=== PATIENT | female | born 1945 | race Caucasian/White ===

== ENCOUNTER 2018-01-10 18:27 | Emergency (ER) | payer MEDICARE, SELFPAY ==
[2018-01-10 18:32] VITALS: BP 156/80; PULSE 104; RESP 16; TEMP 37.2; O2SAT 96
--- NOTE | 2018-01-10 19:15 | ED.GENADUL_ITS ---
Discharge Plan Disposition Patient Disposition: HOME Condition: Fair Discharge Details Chief Complaint: Cellulitis Clinical Impression: Abscess or cellulitis of chest wall Primary Care Provider: Melinda Ramírez ED Provider: Snehal Stallworth Home Meds and New Rx's Prescriptions: New clindamycin HCl 150 mg capsule 150 mg PO TID Qty: 60 RF: 0 Continue acetaminophen [Tylenol] 325 MG tablet 1,300 mg PO DAILY RF: 0 fluoxetine [Prozac] 10 MG capsule 10 mg PO DAILY RF: 0 acetaminophen [Acetaminophen Extra Strength] 500 MG tablet 500 mg PO HS RF: 0 naproxen 250 mg Tablet RF: 0 Discontinued amoxicillin-pot clavulanate [Augmentin] 875-125 mg Tablet 1 tab BID RF: 0 Discharge Instructions Instructions: Cellulitis (ED) Additional Instructions: Your abscess was drained while here in the wound was packed. Please keep current dressing until evaluated by primary care tomorrow. Please stop Augmentin and begin clindamycin as prescribed. If you develop fever/chills, increased pain, spreading of the redness or other new/worsening symptoms please seek care urgently once again. Keep appointment with primary tomorrow. Tylenol and/or ibuprofen as needed for discomfort. Encourage hydration Referrals: Melinda Ramírez [Primary Care Provider] - Medical Decision Making MDM Narrative Medical decision making narrative: Patient presents today with chief complaint of erythema and pain under the right breast. She reports that she has been feeling flushed but no known fever. She is currently afebrile. She appears nontoxic. Patient has been being treated with Augmentin for the past 4 days for skin infection. She does appear quite anxious on exam and reports that she has a lot of anxiety around her current condition. On exam, patient is noted to have cellulitis around a fluctuant open area, please see physical exam. I am unable to express any fluid at this time, the open area seems to largely have closed up. I did order an ultrasound probe over this area. Multiple loculations filled with fluid are noted under this. Overall, appears quite small and does not seem to dive deep into the breast tissue Consulted with general surgery. Spoke with Dr. Peña. We discussed the findings of the ultrasound as well as physical exam patient's history. She advised on how we could do this in the emergency room and felt that this was within the scope of practice for emergency room provider. She advised that if the abscess continues to be problematic for patient she should follow-up with general surgeon. Discussed this plan with the patient. We will apply LET and then anesthetize with local anesthetic. Please see procedure note for further information on incision and drainage of the patient's right breast abscess. Patient tolerated this well. Loculations were broken up with hemostat. Wound was packed with iodoform gauze. Patient I discussed care of her abscess. She will keep current dressing until evaluated by primary care. Patient has scheduled appointment with primary care tomorrow. Patient will stop Augmentin and begin clindamycin. Feel that she needs MRSA coverage. The surrounding cellulitis was demarcated with marker. High encourage hydration. Advised Tylenol and/or ibuprofen as needed for discomfort. She is given strict return precautions. All the questions and concerns were addressed and she is in agreement this plan HPI - General Adult General Mode of arrival: ambulatory . Date/Time Provider Initiated Documentation: 01/10/18 18:57 . Limitations to Documentation: no limitations . Information obtained by: patient . HPI Narrative: Patient is a 72-year-old female presenting today with chief complaint of infection to the right breast. Patient reports that she was seen by her primary care 4 days ago which time she was begun on Augmentin. Reports that she was diagnosed with a carbuncle. States that at this time she saw her primary it appeared coming to ahead. We are hoping that with some warm compresses it would have been naturally. She does report that she has had some drainage. Has been applying warm compresses as advised by her primary care. Has been taking her Augmentin as prescribed. Despite this, she reports that the pain and erythema has been spreading. States that she has been feeling feverish but has not actually measured a fever. She does report she takes naproxen and acetaminophen frequently for osteoarthritic pain. Denies GI upset. Also reports that she has had multiple other small areas of inflammation and possible abscesses recently all of which she has been able to promptly drained at home and have not needed evaluation. Patient was treated with ciprofloxacin recently. She is allergic to Bactrim. Related Data Home Medications Medication Instructions Recorded Confirmed acetaminophen [Tylenol] 1,300 mg PO DAILY NS 09/10/12 01/10/18 fluoxetine [Prozac] 10 mg PO DAILY NS 09/10/12 01/10/18 acetaminophen [Acetaminophen Extra 500 mg PO HS 01/22/15 01/10/18 Strength] naproxen 01/10/18 Previous Rx's Medication Instructions Recorded clindamycin HCl 150 mg PO TID #60 cap 01/10/18 Allergies Allergy/AdvReac Type Severity Reaction Status Date / Time celery Allergy Severe Anaphylaxsi Unverified 09/08/16 09:00 s sulfamethoxazole AdvReac Intermediate Unverified 09/08/16 09:00 [From Bactrim] trimethoprim [From Bactrim] AdvReac Intermediate Unverified 09/08/16 09:00 ciprofloxacin [From Cipro] AdvReac Other (See Unverified 01/10/18 18:37 Comment) General Stated Complaint: Cellulitis KETTY: 3 Review of Systems Constitutional Reports as per HPI Cardiovascular Denies chest pain, Denies chest pain with activity, Denies dyspnea and Denies dyspnea on exertion Respiratory Denies cough, Denies dyspnea, Denies dyspnea on exertion and Denies wheezing Gastrointestinal Reports as per HPI, Denies abdominal pain, Denies change in bowel habits, Reports nausea (associates with anxiety, none when at rest and calm) and Denies vomiting Integumentary/Breasts Reports as per HPI Psychiatric Reports anxiety Allergic/Immunologic Denies wheezing PFSH Medical History Depression Hypertension Social History Smoking/Tobacco Use Status: Former Tobacco Use Exam Const General: cooperative, healthy appearing, comfortable, no acute distress and well developed Nutritional Appearance: overweight Orientation: alert and awake Eyes General: appearance normal, both eyes and all related structures Resp Effort & Inspection: normal respiratory effort, able to speak in complete sentences and no respiratory distress Auscultation: clear to auscultation bilaterally Cardio Rate: regular rate Rhythm: regular rhythm Heart Sounds: S1 normal and S2 normal GI Inspection: normal to inspection and no abdominal wall ecchymosis Palpation: soft, no hepatosplenomegaly, not firm, no guarding, not rigid and nontender Skin General skin exam: fluctuance (patient has area of fluctuance under the left breast. Open area, not actively draining, 3mm in diameter. Surrounding tissue is erythematous 10cm x 6cm) and no induration Neuro General: alert and awake Cognition: normal cognition Speech: speech normal Gait: normal gait Psych Appearance: grossly normal and well kempt Mental Status: mental status grossly normal Speech and Movement: speech and movement normal Mood: congruent mood Affect: normal affect Course Vital Signs Temperature 37.2 C 01/10/18 18:32 Pulse 104 H 01/10/18 18:32 Respiratory Rate 16 01/10/18 18:32 Blood Pressure 156/80 H 01/10/18 18:32 Pulse Oximetry 96 01/10/18 18:32 Temperature 37.2 C 01/10/18 18:32 Pulse 104 H 01/10/18 18:32 Respiratory Rate 16 01/10/18 18:32 Blood Pressure 156/80 H 01/10/18 18:32 Pulse Oximetry 96 01/10/18 18:32 Procedures Abscess I/D Site: Other (right breast) Side (if applicable): Right Local Anesthetic: Lidocaine 1% and With Epi Amount of anesthesia used (mL): 5 Technique: Incised with #11 Blade Amount of fluid expressed (mL): 4 Irrigation: Yes Packing used?: Iodoform
[2018-01-10] MEDS: Clindamycin 150 MG CAP 450 MG PO ×2 (21:19→21:20)
[2018-01-10 21:25] VITALS: BP 152/60; PULSE 99; RESP 16; O2SAT 96
== END 2018-01-10 21:30 | disposition home or self-care (01) ==
PROVIDERS: Emergency Provider Physician Assistant; PCP Family Medicine
DX: L02.213 Cutaneous abscess of chest wall (principal); L03.313 Cellulitis of chest wall; I10 Essential (primary) hypertension
CPT/HCPCS: 10060; 99284

== ENCOUNTER 2018-02-18 09:07 | Outpatient (REF) | payer MEDICARE, SELFPAY ==
[2018-02-18 14:37] LABS: C-Reactive Protein 0.23 mg/dL (0.0-0.3)
[2018-02-18 15:19] LABS: ESR 21 MM/HR (0-30)
[2018-02-19 10:35] LABS: Cyclic Citrullinated Peptide <2.5 U/mL (<5.0); Rheumatoid Factor <8 IU/mL (<12.5)
[2018-02-19 14:10] LABS: ANA Interpretation Negative (NEGAT)
== END 2018-02-18 09:27 ==
LOC: NCHCN 09:07
PROVIDERS: PCP Family Medicine; Visit Provider Nurse Practitioner Family
DX: I10 Essential (primary) hypertension (principal); E78.5 Hyperlipidemia, unspecified; M17.0 Bilateral primary osteoarthritis of knee; L02.91 Cutaneous abscess, unspecified; F41.9 Anxiety disorder, unspecified; I51.9 Heart disease, unspecified; E66.9 Obesity, unspecified
CPT/HCPCS: 85652; 86200; 86038; 86140; 86431

== ENCOUNTER 2018-03-15 00:19 | Outpatient (CLI) | payer MEDICARE, SELFPAY ==
--- NOTE | 2018-03-15 11:46 | DI.MAMMO_ITS ---
SYMPTOMS/DIAGNOSIS: BREAST CA SCREENING, Z12.39, PREVENTATIVE CARE, Z00.00 MAMMOGRAMS: Mammograms were interpreted according to the usual protocol including computer analysis with CAD system, tomosynthesis and C view imaging. Comparison is with the prior examinations. No suspicious masses or microcalcifications are seen in the left breast. There appears to have developed a new partially obscured well-circumscribed nodule in the upper outer quadrant of the right breast. Spot compression views and a right breast ultrasound are requested for further evaluation. IMPRESSION: Additional views of the right breast as described above. Category 0 , breast density B. MQSA ASSESSMENT OF FINDINGS: Incomplete: Needs additional imaging evaluation. Category 0. Patient will receive a letter notifying them of these results. BI-RADS category B. There are scattered areas of fibroglandular density.
== END 2018-03-15 00:39 ==
PROVIDERS: PCP Family Medicine; Visit Provider Nurse Practitioner
DX: Z12.31 Encounter for screening mammogram for malignant neoplasm of breast (principal); R92.8 Other abnormal and inconclusive findings on diagnostic imaging of breast
CPT/HCPCS: 77063; 77067

== ENCOUNTER 2018-03-19 01:00 | Outpatient (CLI) | payer MEDICARE, SELFPAY ==
--- NOTE | 2018-03-19 13:06 | DI.COMBO_ITS ---
SYMPTOMS/DIAGNOSIS: F/U MAMMO, RT BREAST NODULE ADDITIONAL VIEWS OF THE RIGHT BREAST AND RIGHT BREAST ULTRASOUND: Additional images are interpreted according to the usual protocol including tomosynthesis and 2D imaging. Additional views of the right breast again show a partially obscured nodule in the upper outer quadrant of the right breast. No associated microcalcifications are present. A right breast ultrasound was performed. At the 11:00 o'clock position of the right breast there is a well circumscribed cyst measuring 0.5 cm. It would appear to correspond to the mammographic abnormality. No internal blood flow or solid component is seen. No solid masses are seen in the upper outer quadrant of the right breast. IMPRESSION: No evidence for malignancy. Yearly mammography is recommended. Category 2. Breast density B. The findings were discussed with the patient on the date of the examination. MQSA ASSESSMENT OF FINDINGS: Negative with benign findings. Category 2. Patient will receive a letter notifying them of these results. BI-RADS category B. There are scattered areas of fibroglandular density.
== END 2018-03-19 01:20 ==
PROVIDERS: PCP Family Medicine; Visit Provider Nurse Practitioner
DX: Z12.31 Encounter for screening mammogram for malignant neoplasm of breast (principal); R92.8 Other abnormal and inconclusive findings on diagnostic imaging of breast; N60.01 Solitary cyst of right breast
CPT/HCPCS: 76642; 77063; 77067

== ENCOUNTER 2018-08-23 11:04 | Outpatient (REF) | payer MEDICARE, OTHER, SELFPAY ==
[2018-08-23 21:15] LABS: Anion Gap 10.4 mmol/L (3-11); BUN 19 mg/dL (7-18); CO2 25.6 mmol/L (21.0-32.0); CREATININE 0.77 mg/dL (0.55-1.02); Chloride 105 mmol/L (98-107); Cholesterol 212 mg/dL (50-200); Glucose 103 mg/dL (70-100); HDL Cholesterol 61 mg/dL (40-60); LDL CHOLESTEROL 130 mg/dL (<100); Potassium 4.2 mmol/L (3.5-5.1); Sodium 141 mmol/L (136-145); Triglyceride 104 mg/dL (30-150)
== END 2018-08-23 11:24 ==
LOC: NCHCN 11:04
PROVIDERS: PCP Family Medicine; Visit Provider Nurse Practitioner Family
DX: E78.5 Hyperlipidemia, unspecified (principal); I10 Essential (primary) hypertension; I51.9 Heart disease, unspecified; E66.9 Obesity, unspecified; F41.9 Anxiety disorder, unspecified
CPT/HCPCS: 80048; 80061; 83721

== ENCOUNTER 2018-10-13 00:44 | Outpatient (CLI) | payer MEDICARE, OTHER, SELFPAY ==
--- NOTE | 2018-10-13 07:30 | MERGE_ITS ---
*[facility]* *[facility]* [address] [place] [address] Date of study: 10/13/2018 Transthoracic Echocardiography M-mode, complete 2D, complete spectral Doppler, and color Doppler *STUDY CONCLUSIONS* Summary: 1. Left ventricle: The cavity size was normal. Wall thickness was normal. Systolic function was normal. The estimated ejection fraction was 60-65%. Wall motion was normal; there were no regional wall motion abnormalities. Diastolic parameters were normal for age. 2. Right ventricle: The cavity size was normal. Wall thickness was normal. Systolic function was normal. 3. Pulmonary arteries: Pulmonary systolic pressure was increased, in the range of 40mm Hg to 45mm Hg. *PATIENT PRESENTATION* Height: 165.1cm ((65in) ) S/D Pressure: 129 / 70 Weight: 90.3kg ((198.6lb) ) BSA: 2.07m^2 Test start time: 07:35 AM. Test stop time: 08:35 AM. PERFORMING Unknown CONSULTING Melinda Ramírez ORDERING Sofia Berg Aprn REFERRING Sofia Berg Aprn PERFORMING [facility] SUPERVISOR [employer] RT Kiersten Lynch)BROOKS)CELESTE *PROCEDURE DATA* Procedure information: The patient was identified by two identifiers. This study was interpreted by [facility]. Pertinent images and digital data are archived for permanent storage and are available for subsequent review. Comparison was made to the study of 10/05/2017. Study status: Routine. Transthoracic echocardiography. M-mode, complete 2D, complete spectral Doppler, and color Doppler. A Transthoracic Echocardiogram was performed. Scanning was performed from the parasternal, apical, subcostal, and suprasternal notch acoustic windows. Images were obtained using an [id number] cardiac ultrasound machine. Image quality was adequate. Study completion: The patient tolerated the procedure well. There were no complications. History: PMH: Near syncope R55. Diastolic dysfunction, mitral regurgitation i34.0. *CARDIAC ANATOMY* Left ventricle: The cavity size was normal. Wall thickness was normal. Systolic function was normal. The estimated ejection fraction was 60-65%. Wall motion was normal; there were no regional wall motion abnormalities. Diastolic parameters were normal for age. Aortic valve: Trileaflet; normal thickness leaflets. Mobility was not restricted. Doppler: Transvalvular velocity was within the normal range. There was no stenosis. There was no significant regurgitation. VTI ratio of LVOT to aortic valve: 0.79. Valve area (VTI): 2.3cm^2. Indexed valve area (VTI): 1.1cm^2/m^2. Peak velocity ratio of LVOT to aortic valve: 0.83. Valve area (Vmax): 2.4cm^2. Indexed valve area (Vmax): 1.2cm^2/m^2. Mean velocity ratio of LVOT to aortic valve: 0.71. Valve area (Vmean): 2.1cm^2. Indexed valve area (Vmean): 1cm^2/m^2. Mean gradient (S): 5mm Hg. Peak gradient (S): 7.9mm Hg. Aorta: Aortic root: The aortic root was normal in size. Ascending aorta: The ascending aorta was normal in size. Mitral valve: Mildly calcified annulus. Mobility was not restricted. Doppler: Transvalvular velocity was within the normal range. There was no evidence for stenosis. There was trivial regurgitation. Valve area by pressure half-time: 4.8cm^2. Indexed valve area by pressure half-time: 2.3cm^2/m^2. Left atrium: The atrium was normal in size. Right ventricle: The cavity size was normal. Wall thickness was normal. Systolic function was normal. Pulmonic valve: Structurally normal valve. Doppler: Transvalvular velocity was within the normal range. There was no evidence for stenosis. There was no significant regurgitation. Peak gradient (S): 3.9mm Hg. Tricuspid valve: Structurally normal valve. Doppler: Transvalvular velocity was within the normal range. There was no evidence for stenosis. There was mild regurgitation. Pulmonary artery: Pulmonary systolic pressure was increased, in the range of 40mm Hg to 45mm Hg. Right atrium: The atrium was normal in size. Pericardium: There was no pericardial effusion. Systemic veins: Inferior vena cava: Well visualized. The vessel was patent and normal in size. The respirophasic diameter changes were in the normal range (greater than or equal to 50%). Baseline ECG: Normal sinus rhythm. Measurements Left ventricle Value 10/05/2017 Reference LV ID, ED, PLAX 5.0 cm 4.3 3.5 - 6.0 LV ID, ES, PLAX 3.1 cm 3.3 2.1 - 4.0 LV PW thickness, ED, PLAX 1.0 cm 1.1 LV end-diastolic volume, 93 ml 67 1-p A2C LV ejection fraction, 1-p 65 % 64 A2C LV end-diastolic volume, 100 ml 63 1-p A4C LV ejection fraction, 1-p 61 % 47 A4C LV e', lateral 0.091 m/sec 0.088 LV E/e', lateral 7 8 LV e', medial 0.078 m/sec 0.073 LV E/e', medial 8 9 LV e', average 0.085 m/sec 0.08 LV E/e', average 7 9 Ventricular septum Value 10/05/2017 Reference IVS thickness, ED, PLAX 1.1 cm 1.1 LVOT Value 10/05/2017 Reference LVOT ID, A-P 1.9 cm 1.9 LVOT area 2.9 cm^2 2.8 LVOT peak velocity, S 1.17 m/sec 1.08 LVOT mean velocity, S 0.77 m/sec 0.65 LVOT VTI, S 26.8 cm 26.5 LVOT peak gradient, S 5.4 mm Hg 4.7 LVOT mean gradient, S 2.8 mm Hg 2.1 Stroke volume (SV), LVOT 78 ml 75 DP Stroke index (SV/bsa), 38 ml/m^2 36 LVOT DP Aortic valve Value 10/05/2017 Reference Aortic valve peak 1.4 m/sec 1.5 velocity, S Aortic valve mean 1.08 m/sec 1.06 velocity, S Aortic valve VTI, S 34.0 cm 38.2 Aortic mean gradient, S 5 mm Hg 5 Aortic peak gradient, S 7.9 mm Hg 9.4 VTI ratio, LVOT/AV 0.79 0.69 Aortic valve area, VTI 2.3 cm^2 2 Velocity ratio, peak, 0.83 0.71 LVOT/AV Aortic valve area, peak 2.4 cm^2 2 velocity Velocity ratio, mean, 0.71 0.61 LVOT/AV Aortic valve area, mean 2.1 cm^2 1.7 velocity Aortic valve area/bsa, 1 cm^2/m^2 0.8 mean velocity Aorta Value 10/05/2017 Reference Aortic root ID, ED 2.6 cm 2.6 Ascending aorta ID, A-P, S 3.1 cm 3.1 Left atrium Value 10/05/2017 Reference LA ID, A-P, ES 3.6 cm 3.2 LA ID/bsa, A-P 1.7 cm/m^2 1.5 <=2.2 LA area, ES, A4C 22.1 cm^2 20.6 8.8 - 23.4 LA area, ES, A2C 20 cm^2 21 LA volume/bsa, ES, 1-p A4C 39 ml/m^2 33 LA volume, ES, 2-p 66 ml 58 LA volume/bsa, ES, 2-p 32 ml/m^2 28 LA/aortic root ratio 1.36 1.23 Mitral valve Value 10/05/2017 Reference Mitral E-wave peak 0.6 m/sec 0.68 velocity Mitral A-wave peak 0.72 m/sec 0.66 velocity Mitral deceleration time 160 ms 149 150 - 230 Mitral pressure half-time 46 ms 43 Mitral E/A ratio, peak 0.84 1.04 Mitral valve area, PHT, DP 4.8 cm^2 5.1 Pulmonary veins Value 10/05/2017 Reference Pulmonary vein peak 0.78 m/sec 0.79 velocity, S Pulmonary vein peak 0.45 m/sec 0.45 velocity, D Pulmonary vein velocity 1.75 1.77 ratio, peak, S/D Pulmonary vein A-wave 0.3 m/sec 0.27 reversal peak velocity Pulmonary vein A-wave 180 ms 215 reversal duration Tricuspid valve Value 10/05/2017 Reference Tricuspid regurg peak 3 m/sec 3.1 velocity Tricuspid peak RV-RA 36.5 mm Hg 39.2 gradient Right atrium Value 10/05/2017 Reference RA area, ES, A4C 19.1 cm^2 20.3 8.3 - 19.5 Pulmonic valve Value 10/05/2017 Reference Pulmonic peak gradient, S 3.9 mm Hg 4.4 Legend: (L) and (H) ghada values outside specified reference range. I have personally reviewed the images and have reviewed and edited the reported findings. Electronically signed by Jose Lewis 10/13/2018 08:58
== END 2018-10-13 01:04 ==
PROVIDERS: PCP Family Medicine; Visit Provider Nurse Practitioner Family
DX: R55 Syncope and collapse (principal); I34.0 Nonrheumatic mitral (valve) insufficiency; I51.89 Other ill-defined heart diseases
CPT/HCPCS: 93306

== ENCOUNTER → 2019-01-19 11:44 | Outpatient (BNVA) | payer MEDICARE, OTHER, SELFPAY | PROVIDERS: PCP Family Medicine; Referring Provider Nurse Practitioner Family; Visit Provider Student in an Organized Health Care Education/Training Program | DX: I51.89 Other ill-defined heart diseases (principal); I27.20 Pulmonary hypertension, unspecified; E78.2 Mixed hyperlipidemia; I10 Essential (primary) hypertension; R55 Syncope and collapse | CPT/HCPCS: 99204; 99215 ==

== ENCOUNTER 2019-02-04 12:45 | Outpatient (REF) | payer MEDICARE, OTHER, SELFPAY ==
[2019-02-04 20:52] LABS: Anion Gap 9.6 mmol/L (3-11); BUN 25 mg/dL (7-18); CO2 25.4 mmol/L (21.0-32.0); CREATININE 0.94 mg/dL (0.55-1.02); Calcium 8.7 mg/dL (8.5-10.1); Chloride 108 mmol/L (98-107); Estimated GFR 58.37 (mL/min/1.73m2); Glucose 112 mg/dL (70-100); Potassium 4.4 mmol/L (3.5-5.1); Sodium 143 mmol/L (136-145)
== END 2019-02-04 13:05 ==
LOC: NCHCN 12:45
PROVIDERS: PCP Family Medicine; Visit Provider Nurse Practitioner Family
DX: I10 Essential (primary) hypertension (principal)
CPT/HCPCS: 80048

== ENCOUNTER 2019-04-06 01:02 | Outpatient (CLI) | payer MEDICARE, OTHER, SELFPAY ==
--- NOTE | 2019-04-06 12:30 | DI.MAMMO_ITS ---
EXAM: MG MAMMO SCREENING CLINICAL HISTORY: SCREENING Z12.39 TECHNIQUE: Mammograms were interpreted according to the usual protocol including computer analysis w [employer] CAD system, tomosynthesis and C-view imaging. COMPARISON: No exams were available for comparison FINDINGS: The breasts are composed of scattered areas of fibroglandular density, breast density category B. No suspicious masses or suspicious microcalcifications or changes are seen. IMPRESSION: BI-RADS category 1, negative mammogram. Yearly screening mammography is recommended. BI-RADS Cat 1 - Negative Breast Density - Category B - Scattered areas of fibroglandular density
== END 2019-04-06 01:22 ==
PROVIDERS: PCP Family Medicine; Visit Provider Nurse Practitioner Family
DX: Z12.31 Encounter for screening mammogram for malignant neoplasm of breast (principal)
CPT/HCPCS: 77063; 77067

== ENCOUNTER 2020-05-15 18:44 | Outpatient (REF) | payer MEDICARE, OTHER, SELFPAY ==
[2020-05-15 22:00] LABS: Anion Gap 9.5 mmol/L (3-11); BUN 28 mg/dL (7-18); CO2 26.5 mmol/L (21.0-32.0); Calculated LDL 129 mg/dL (<100); Chloride 105 mmol/L (98-107); Cholesterol 215 mg/dL (<200); Glucose 96 mg/dL (74-106); HDL Cholesterol 67 mg/dL (40-60); Potassium 4.7 mmol/L (3.5-5.1); Sodium 141 mmol/L (136-145); TSH (W/Ref FT4) 1.16 uIU/mL (0.36-3.74); Triglyceride 97 mg/dL (<150)
== END 2020-05-15 19:04 ==
LOC: NCHCN 18:44
PROVIDERS: PCP Family Medicine
DX: I10 Essential (primary) hypertension (principal); E78.5 Hyperlipidemia, unspecified; F41.9 Anxiety disorder, unspecified
CPT/HCPCS: 80048; 80061; 84443

== ENCOUNTER 2020-05-16 02:19 | Outpatient (CLI) | payer MEDICARE, OTHER, SELFPAY ==
--- NOTE | 2020-05-16 12:51 | DI.MAMMO_ITS ---
EXAM: MAMMO SCREENING CLINICAL HISTORY: SCREENING, Z12.39. TECHNIQUE: Bilateral full field digital CC and MLO mammographic images were obtained with 3D tomosyn thesis and utilizing computer aided detection (CAD). COMPARISON: Prior mammograms dating back to 2010, the most recent being April 2019. FINDINGS: Ports medial aspect of the right breast there is a the lobulated noncalcified nodule measuring 7 x 5 millimeters located 6 centimetres in from nipple, more prominent than previous. Spot compression vie w recommended. No other significant nodular densities identified. Benign-appearing microcalcificati ons are noted in both breasts. No new architectural distortion or skin thickening-traction IMPRESSION: No radiographic evidence of malignancy in left breast. Right breast nodule. Spot compression cc and whole breast straight lateral cyst 3D views recommended . Also possible ultrasound BI-RADS Category 0 - Assessment Incomplete: Need additional imaging evaluation Breast Density - Category B - Scattered areas of fibroglandular density Breast density Category C or D implies that the patient has dense breast tissue. Dense breast tissue can make it harder to find cancer on a mammogram. Dense breast tissue is also associated with an incr eased risk of breast cancer. This information about the result of the mammogram report was provided to the patient to raise their awareness. Use this report when you speak with the patient about their risks for breast cancer, which includes their family history. At that time, you may recommend additional screening tests (Ultrasoun d or MRI) as these tests may add significant information. A negative radiographic report should not delay biopsy if a dominant or clinically suspicious mass is present. Up to ten percent of cancers are not identified on mammography. A negative report may reinforce clinical impression. Adenosis and dense breasts may obscure an underlying neoplasm. False positive reports average 6 to 10%. Patient will receive a letter notifying them of these results.
== END 2020-05-16 02:39 ==
PROVIDERS: PCP Family Medicine
DX: Z12.31 Encounter for screening mammogram for malignant neoplasm of breast (principal)
CPT/HCPCS: 77063; 77067

== ENCOUNTER 2020-05-24 03:11 | Outpatient (CLI) | payer MEDICARE, OTHER, SELFPAY ==
--- NOTE | 2020-05-24 | DI.US_ITS ---
EXAM: MG MAMMO SCREEN CALL BACK UNI and U/S breast RT limited CLINICAL HISTORY: F/U MAMMO, RT BREAST NODULE. TECHNIQUE: Craniocaudal and mediolateral oblique Full Field Digital Mammography views of the right b reast with Computer Aided Diagnosis followed by Tomosynthesis and right breast ultrasound. COMPARISON: Priors available for comparison. FINDINGS: Mammography/Tomosynthesis: Masses/Architectural Distortion: There is a well-circumscribed nodular density again seen in the lowe r inner quadrant of the right breast. Microcalcifictions: No suspicious pleomorphic-type are seen. Skin Thickening/Nipple Retraction: None. Right breast US: Echotexture: Normal appearance of the glandular tissue. Shadowing: No suspicious foci. Cyst: There is a 0.5 cm round hypoechoic nodule at the 6 o'clock position of the right breast 3 cm fr om the nipple. No posterior acoustic enhancement or shadowing is seen. No internal blood flow is pr esent. There is an ovoid hypoechoic well-circumscribed nodule at the 2 o'clock position of the right breast 6 cm from the nipple. There is no internal blood flow, posterior acoustic shadowing or enhan cement. These both appear benign and may represent cysts. Solid lesions: None seen. Ductal dilation: None. IMPRESSION: 1. No definite evidence of malignancy is noted. 2. A six-month follow-up right mammogram and ultrasound are recommended for re-evaluation. 3. The findings were discussed with the patient on the date of the examination. BI-RADS Category 3 - 6 month - Probably Benign Finding: Recommend follow-up mammography in 6 months Breast Density - Category B - Scattered areas of fibroglandular density Breast density Category C or D implies that the patient has dense breast tissue. Dense breast tissue can make it harder to find cancer on a mammogram. Dense breast tissue is also associated with an incr eased risk of breast cancer. This information about the result of the mammogram report was provided to the patient to raise their awareness. Use this report when you speak with the patient about their risks for breast cancer, which includes their family history. At that time, you may recommend additional screening tests (Ultrasoun d or MRI) as these tests may add significant information. A negative radiographic report should not delay biopsy if a dominant or clinically suspicious mass is present. Up to ten percent of cancers are not identified on mammography. A negative report may reinforce clinical impression. Adenosis and dense breasts may obscure an underlying neoplasm. False positive reports average 6 to 10%. Patient will receive a letter notifying them of these results.
== END 2020-05-24 03:31 ==
PROVIDERS: PCP Family Medicine
DX: R92.8 Other abnormal and inconclusive findings on diagnostic imaging of breast (principal); N63.12 Unspecified lump in the right breast, upper inner quadrant; N63.15 Unspecified lump in the right breast, overlapping quadrants
CPT/HCPCS: 76642; 77063; 77067

== ENCOUNTER 2020-11-22 01:28 | Outpatient (CLI) | payer MEDICARE, OTHER, SELFPAY ==
--- NOTE | 2020-11-22 | DI.US_ITS ---
Exam(s) US BREAST RT COMPLETE EXAM: US BREAST RT COMPLETE CLINICAL HISTORY: 6 MONTH F/U, ABNL MAMMO. TECHNIQUE: Complete ultrasound of the right breast was performed including all 4 quadrants, the retr oareolar region, and the ipsilateral axilla. COMPARISON: Prior mammograms were reviewed. Today's diagnostic mammogram was reviewed. Prior breast ultrasound performed May 2020 was reviewed FINDINGS: At the 2 o'clock position there is a small conglomeration of microcysts measuring 3 millimeters. At the 4 o'clock position there is a new finding which measures 7 x 4 millimeters and has appearance of a benign conglomeration of microcysts, wider than taller and with slight increased through transmi ssion. This probably corresponds to the finding on the mammogram. At the 6 o'clock position there is an unchanged microcyst which measures 4 millimeters. No new findings in the immediate retroareolar region. Benign-appearing right axillary lymph nodes noted. IMPRESSION: Benign-appearing ultrasound findings as described individually above. The new finding at the 4 o'clock position has appearance of benign conglomeration microcysts. Appropriate follow-up is keep this patient yearly mammogram schedule implying the next bilateral mamm ogram would be in May 2021. I recommend repeat ultrasound also be performed at that time.. BI-RADS Category 3 - 6 month - Probably Benign Finding: Recommend follow-up mammography in 6 months Breast Density - Category B - Scattered areas of fibroglandular density Breast density Category C or D implies that the patient has dense breast tissue. Dense breast tissue can make it harder to find cancer on a mammogram. Dense breast tissue is also associated with an incr eased risk of breast cancer. This information about the result of the mammogram report was provided to the patient to raise their awareness. Use this report when you speak with the patient about their risks for breast cancer, which includes their family history. At that time, you may recommend additional screening tests (Ultrasoun d or MRI) as these tests may add significant information. A negative radiographic report should not delay biopsy if a dominant or clinically suspicious mass is present. Up to ten percent of cancers are not identified on mammography. A negative report may reinforce clinical impression. Adenosis and dense breasts may obscure an underlying neoplasm. False positive reports average 6 to 10%. Patient will receive a letter notifying them of these results.
--- NOTE | 2020-11-22 | DI.MAMMO_ITS ---
Exam(s) MAMMO DIAGNOSTIC UNI EXAM: MAMMO DIAGNOSTIC UNI CLINICAL HISTORY: F/U ABNL MAMMO, 6 MO F/U,R92.8. TECHNIQUE: Both CC and MLO views of right breast were performed obtained with 3D Tomosynthesistechni que and utilizing computer aided detection (CAD). COMPARISON: Prior mammograms reviewed, most recent being screening mammogram 05/16/2020. FINDINGS: Subtle nodular density at 6 o'clock position is noted this appears slightly more prominent on the reina or study. Appears to correspond to a conglomeration microcysts as seen on today's ultrasound which w as performed following this mammogram (see separate ultrasound report). Other benign-appearing densi ties again noted. No malignant-appearing microcalcification groups. No new architectural distortion or skin thickening-retraction IMPRESSION: Findings as above. Ultrasound performed following today's mammogram reveals benign findings includin g a new conglomeration microcysts measuring 8 x 5 millimeters which probably corresponds to the findi ng on the mammogram. Appropriate follow-up is to keep this patient yearly mammogram schedule, this implying that her next screening mammogram would be in May 2021. I also recommend repeat ultrasound examination at that time. The patient was informed of the findings and follow-up recommendations by myself prior to leaving the department today. BI-RADS Category 3 - 6 month - Probably Benign Finding: Recommend follow-up mammography in 6 months Breast Density - Category B - Scattered areas of fibroglandular density Breast density Category C or D implies that the patient has dense breast tissue. Dense breast tissue can make it harder to find cancer on a mammogram. Dense breast tissue is also associated with an incr eased risk of breast cancer. This information about the result of the mammogram report was provided to the patient to raise their awareness. Use this report when you speak with the patient about their risks for breast cancer, which includes their family history. At that time, you may recommend additional screening tests (Ultrasoun d or MRI) as these tests may add significant information. A negative radiographic report should not delay biopsy if a dominant or clinically suspicious mass is present. Up to ten percent of cancers are not identified on mammography. A negative report may reinforce clinical impression. Adenosis and dense breasts may obscure an underlying neoplasm. False positive reports average 6 to 10%. Patient will receive a letter notifying them of these results.
== END 2020-11-22 01:48 ==
PROVIDERS: PCP Family Medicine
DX: R92.8 Other abnormal and inconclusive findings on diagnostic imaging of breast (principal); N60.01 Solitary cyst of right breast
CPT/HCPCS: 76642; 77061; 77065; G0279

== ENCOUNTER 2021-01-11 11:41 | Outpatient (CLI) | payer MEDICARE, OTHER, SELFPAY ==
--- NOTE | 2021-01-11 10:15 | DI.RAD_ITS ---
Exam(s) XR LUMBAR SPINE AP, LAT EXAM: XR LUMBAR SPINE AP, LAT CLINICAL HISTORY: worsening LBP with signs of stenosis. TECHNIQUE: 2D digital imaging was performed. COMPARISON: CR LUMBAR SPINE AP, LAT from 06/23/2016 CR LUMBAR SPINE AP, LAT from 06/23/2016 FINDINGS: BONES: No fracture or destructive lesion. Endplate osteophytes are noted throughout. The osteophyte s have increased in prominence when compared with the previous exam. Facet degenerative changes are present, greatest at L4-5 and L5-S1. There are mild degenerative changes of the SI joints. DISKS: There is mild narrowing of the L4-5 disc space. ALIGNMENT: Lumbar spinal alignment is within normal limits. SOFT TISSUE: Normal. IMPRESSION: Mild L4-5 disc space narrowing. Increased prominence of endplate osteophytes. DATA REPOSITORY: RADIATION DOSE DELIVERED:
--- NOTE | 2021-01-11 10:15 | DI.RAD_ITS ---
Exam(s) XR KNEE RT 2V AP,LAT EXAM: XR KNEE RT 2V AP,LAT CLINICAL HISTORY: eval worsening R knee pain. TECHNIQUE: 2D digital imaging was performed. COMPARISON: CR XR KNEE LT 2V AP,LAT from 01/11/2021 FINDINGS: There is severe narrowing of the medial femoral tibial joint space. There is prominent periarticular spurring. There is compensatory widening of the lateral femoral tibial joint space and varus angula tion at the knee. There is prominent spurring at the lateral tibial plateau as well as patellofemora l joint. There is a small joint effusion. IMPRESSION: Severe degenerative changes, greatest of the medial femoral tibial joint space. DATA REPOSITORY: RADIATION DOSE DELIVERED:
--- NOTE | 2021-01-11 10:15 | DI.RAD_ITS ---
Exam(s) XR KNEE LT 2V AP,LAT EXAM: XR KNEE LT 2V AP,LAT CLINICAL HISTORY: eval L knee pain, h/o OA. TECHNIQUE: 2D digital imaging was performed. COMPARISON: CR RIGHT KNEE 3 VIEWS from 02/14/2014 FINDINGS: There is severe narrowing of the medial femoral tibial joint space causing varus angulation. There i s periarticular spurring and sclerosis. Spurring is also noted at the tibial spines and patellofemor al joint. There is spurring at the quadriceps insertion on the patella. IMPRESSION: Severe degenerative changes, greatest of the medial femoral tibial joint. DATA REPOSITORY: RADIATION DOSE DELIVERED:
== END 2021-01-11 11:42 | disposition home or self-care (01) ==
LOC: DIORS 11:41
PROVIDERS: PCP Family Medicine; Visit Provider Student in an Organized Health Care Education/Training Program
DX: M17.12 Unilateral primary osteoarthritis, left knee; M17.11 Unilateral primary osteoarthritis, right knee; M48.062 Spinal stenosis, lumbar region with neurogenic claudication
CPT/HCPCS: 99213; 72100; 73560

== ENCOUNTER 2021-02-05 01:53 | Outpatient (CLI) | payer MEDICARE, OTHER, SELFPAY ==
--- NOTE | 2021-02-05 11:50 | DI.MRI_ITS ---
Exam(s) MR LUMBAR SPINE WO EXAM: MR LUMBAR SPINE WO CLINICAL HISTORY: LUMBAR SPINAL STENOSIS,BACK PAIN,M48.061. TECHNIQUE: Multiplanar multisequence MRI of the Lumbar spine was performed. COMPARISON: MR MRI - LUMBAR SPINE WO CONTRAST from 06/26/2016 CR XR LUMBAR SPINE AP, LAT from 01/11/2021 FINDINGS: Bones: The last intervertebral disc space is designated the L5/S1 level for the numbering purpose of this examination. The vertebral body heights are well maintained. Alignment is satisfactory. The si gnal characteristics are unremarkable. Cord: The conus tip ends at the T12-L1 disc level. It is of normal size and signal intensity. T12-L1: No disc herniations or bulges are present. No central spinal canal or neural foraminal stenos is. L1-2: No disc herniations or bulges are present. No central spinal canal or neural foraminal stenosis . L2-3: There is a diffuse disc bulge. No significant central spinal canal stenosis results. There is no neural foraminal stenosis. L3-4: No disc herniations or bulges are present. No central spinal canal or neural foraminal stenosis . L4-5: There is a stable left paracentral disc herniation. Degenerative changes of the facets with li gamentum flavum hypertrophy is present. There is severe central spinal canal stenosis which is sligh tly progressed since the prior examination.No neural foraminal stenosis. L5-S1: No disc herniations or bulges are present. There are degenerative changes of the facets. No c entral spinal canal stenosis is seen.There is mild right neural foraminal narrowing. No significant left neural foraminal stenosis is present. Soft tissues: The visualized SI joints and sacrum are well maintained. The paraspinal soft tissues ar e unremarkable. IMPRESSION: 1. Multilevel degenerative changes in the lumbar spine as described. 2. Degenerative changes and herniation at L4-L5 causing severe central spinal canal stenosis. This i s slightly progressed since the prior examination. DATA REPOSITORY:
== END 2021-02-05 02:13 ==
PROVIDERS: PCP Family Medicine; Visit Provider Student in an Organized Health Care Education/Training Program
DX: M48.061 Spinal stenosis, lumbar region without neurogenic claudication (principal); M47.816 Spondylosis without myelopathy or radiculopathy, lumbar region; M51.26 Other intervertebral disc displacement, lumbar region
CPT/HCPCS: 72148

== ENCOUNTER → 2021-02-11 12:56 | Outpatient (BNVA) | payer MEDICARE, OTHER, SELFPAY | PROVIDERS: PCP Family Medicine; Referring Provider Family Medicine; Visit Provider Student in an Organized Health Care Education/Training Program | DX: M48.062 Spinal stenosis, lumbar region with neurogenic claudication (principal) | CPT/HCPCS: 99213 ==

== ENCOUNTER 2021-05-17 02:00 | Outpatient (CLI) | payer MEDICARE, OTHER, SELFPAY ==
--- NOTE | 2021-05-17 | DI.MAMMO_ITS ---
Exam(s) US BREAST RT COMPLETE MG MAMMO DIAGNOSTIC BI EXAM: MG MAMMO DIAGNOSTIC BI AND COMPLETE RIGHT BREAST ULTRASOUND CLINICAL HISTORY: DIAGNOSTIC, RT BREAST CYST,6 MONTH FOLLOW UP. TECHNIQUE: Both CC and MLO views of both breasts were performed. We also performed an additional sp ot compression view over a new nodular density in the right breast. Obtained with 3D tomosynthesis t [facility] and utilizing computer aided detection (CAD). Complete right breast ultrasound was performed, including all 4 quadrants as well as the retroareolar region. Right axilla was also scanned. COMPARISON: Prior mammograms dating back to 2012, the most recent being May and November 2020. Prio r ultrasound examination 11/22/2020 was FINDINGS: DIAGNOSTIC BILATERAL MAMMOGRAM: The previously described nodular density medially in the right breast is less evident on the present study (and indeed the ultrasound performed today does not reveal the previously present finding this location). However, more laterally in the right breast there is a nodular density seen on 3D cc imag ing located 7 cm in from the nipple and measuring approximately 7 by 6 millimeters. This is somewhat equivocal on additional spot compression view performed over this area today. Benign-appearing micr ocalcifications are noted in both breasts. In the opposite-left breast small benign-appearing nodular density noted lateral of center is unchang ed. Benign-appearing microcalcifications noted There is no new architectural distortion or skin thickening-traction either breast. COMPLETE RIGHT BREAST ULTRASOUND: The previously present conglomeration microcysts seen at the 4 o'clock position is no longer seen, th is commensurate with findings on today's mammogram. There is a new ultrasound finding at the 8 o'clock position which corresponds to the new finding on t miki's mammogram and has the appearance of a probable conglomeration of hemorrhagic microcysts. The largest component measures 4 x 3 millimeters. This is wider than taller and exhibits of bright back wall and mild increased through transmission. No decreased through transmission. There are no other focal ultrasound findings in right breast. Right axilla is negative for significa nt adenopathy. IMPRESSION: 1. No radiographic evidence of malignancy. On the mammogram the previously present nodule described on the prior mammograms has resolved and is also no longer visible on ultrasound for further evidence that it was benign. 2. There is a new finding in the right breast which appears to be a probable conglomeration of hemorr hagic microcysts at the 8 o'clock position, as described above. Appropriate follow-up is repeat right breast imaging in 6 months, to include repeat right breast mamm ogram and ultrasound. . The patient was informed of the findings and follow-up recommendations prior to leaving the [facility] t today. BI-RADS Category 3 - 6 month - Probably Benign Finding: Recommend follow-up mammography in 6 months Breast Density - Category B - Scattered areas of fibroglandular density Breast density Category C or D implies that the patient has dense breast tissue. Dense breast tissue can make it harder to find cancer on a mammogram. Dense breast tissue is also associated with an incr eased risk of breast cancer. This information about the result of the mammogram report was provided to the patient to raise their awareness. Use this report when you speak with the patient about their risks for breast cancer, which includes their family history. At that time, you may recommend additional screening tests (Ultrasoun d or MRI) as these tests may add significant information. A negative radiographic report should not delay biopsy if a dominant or clinically suspicious mass is present. Up to ten percent of cancers are not identified on mammography. A negative report may reinforce clinical impression. Adenosis and dense breasts may obscure an underlying neoplasm. False positive reports average 6 to 10%. Patient will receive a letter notifying them of these results.
== END 2021-05-17 02:20 ==
PROVIDERS: PCP Family Medicine; Visit Provider Family Medicine
DX: R92.8 Other abnormal and inconclusive findings on diagnostic imaging of breast (principal)
CPT/HCPCS: 76642; 77062; 77066; G0279

== ENCOUNTER 2021-08-21 12:29 | Outpatient (REF) | payer MEDICARE, OTHER, SELFPAY ==
[2021-08-21 16:36] LABS: HCT 43.1 % (36.0-46.0); HGB 13.3 g/dL (11.2-15.7); MCH 29.2 pg (27.0-33.0); MCHC 30.9 % (32.0-36.0); MCV 94.5 fL (80-95); MPV 11.5 fL (8.0-11.0); Platelet Count 294 10^3/uL (130-400); RBC 4.56 10^6/uL (3.93-5.22); RDW 13.6 % (11.7-14.6); RDW-SD 47.5 fL
[2021-08-21 16:55] LABS: ALT 23 U/L (14-59); AST 19 U/L (15-37); Albumin 4.1 g/dL (3.4-5.0); Alkaline Phosphatase 75 U/L (46-116); Anion Gap 10.5 mmol/L (3-11); BUN 19 mg/dL (7-18); Bilirubin, Total 0.3 mg/dL (0.2-1.0); CO2 25.5 mmol/L (21.0-32.0); CREATININE 0.8 mg/dL (0.55-1.02); Calcium 9.2 mg/dL (8.5-10.1); Chloride 106 mmol/L (98-107); Glucose 102 mg/dL (74-106); Potassium 4.5 mmol/L (3.5-5.1); Sodium 142 mmol/L (136-145); Total Protein 7.3 g/dL (6.4-8.2)
== END 2021-08-21 12:30 | disposition home or self-care (01) ==
LOC: NCHCN 12:29
PROVIDERS: PCP Family Medicine; Visit Provider Family Medicine
DX: I10 Essential (primary) hypertension (principal)
CPT/HCPCS: 80053; 85027

== ENCOUNTER 2021-11-12 11:22 | Emergency (ER) | payer MEDICARE, OTHER, SELFPAY ==
[2021-11-12 11:33] VITALS: BP 136/61; PULSE 94; RESP 18; TEMP 36.7; O2SAT 93
--- NOTE | 2021-11-12 13:04 | DI.MRI_ITS ---
Exam(s) MR LUMBAR SPINE WO/W EXAM: MR LUMBAR SPINE WO/W CLINICAL HISTORY: evaluate for epidural abscess or discitis, s/p epi. TECHNIQUE: Multiplanar multisequence MRI of the Lumbar Spine was performed. CONTRAST MATERIAL: IV Contrast: 19 mL of Dotarem contrast administered. COMPARISON: MR MR LUMBAR SPINE WO from 02/05/2021 CR XR CHEST 1V IN DI DEPT from 11/12/2021 FINDINGS: The examination is limited due to patient motion artifact. Bones: The last intervertebral disc space is designated the L5/S1 level for the numbering purpose of this examination. The vertebral body heights are well maintained. Alignment is satisfactory. Degener ative endplate signal changes are again seen. There has been no change in the degree of central spin al canal and neural foraminal stenosis since the examination from 02/05/2021. Cord: The conus tip ends at the T12 level. It is of normal size and signal intensity. Soft tissues: The visualized SI joints and sacrum are well maintained. The paraspinal soft tissues ar e unremarkable. There is no evidence of suspicious enhancement. No evidence to suggest diskitis or osteomyelitis is s een. No focal fluid collection is seen to suggest an abscess. IMPRESSION: 1. No evidence to suggest diskitis or osteomyelitis. No evidence of an epidural abscess. 2. Results of this exam have been verbally communicated with provider. DATA REPOSITORY:
--- NOTE | 2021-11-12 13:04 | DI.RAD_ITS ---
Exam(s) XR CHEST 1V IN DI DEPT EXAM: XR CHEST 1V IN DI DEPT CLINICAL HISTORY: fever TECHNIQUE: 2D digital imaging was performed of the chest. One image was obtained. An AP view was ob tained. COMPARISON: No exams were available for comparison FINDINGS: MEDIASTINUM: Normal. HEART: Normal. PULMONARY VASCULATURE: Normal. LUNGS: Clear. PLEURAL SPACE: No pleural effusion or pneumothorax. BONE:Within normal limits for the patient's age. OTHER FINDINGS:Normal. IMPRESSION: No acute pulmonary findings. DATA REPOSITORY: RADIATION DOSE DELIVERED:
[2021-11-12 13:20] VITALS: BP 127/64; PULSE 91; RESP 17; TEMP 37.4; O2SAT 92
[2021-11-12 13:35] VITALS: RESP 16
[2021-11-12 14:00] LABS: Abs Immature Grans 0.06 10^3/uL (0.0-0.06); Absolute Lymphocyte Count 0.78 10^3/uL (1.2-3.4); Absolute Monocyte Count 1.17 10^3/uL (0.1-0.8); Basophils % 0.1; HCT 40.5 % (36.0-46.0); HGB 13.1 g/dL (11.2-15.7); Immature Grans % 0.4; Lymphocytes % 5.3; MCH 29.9 pg (27.0-33.0); MCHC 32.3 % (32.0-36.0); MCV 93 fL (80-95); MPV 10.6 fL (8.0-11.0); Monocytes % 7.9; Neutrophils % 86.3; Platelet Count 226 10^3/uL (130-400); RBC 4.38 10^6/uL (3.93-5.22); RDW-SD 47.8 fL; WBC 14.75 10^3/uL (4.4-10.8)
[2021-11-12 14:01] LABS: Absolute Basophil Count 0.01 10^3/uL (0.0-0.2); Absolute Neutrophil Count 12.73 10^3/uL (1.2-6.7)
[2021-11-12 14:23] LABS: ALT 22 U/L (14-59); AST 15 U/L (15-37); Albumin 3.7 g/dL (3.4-5.0); Alkaline Phosphatase 54 U/L (46-116); Anion Gap 11.5 mmol/L (3-11); BUN 19 mg/dL (7-18); Bilirubin, Total 0.5 mg/dL (0.2-1.0); C-Reactive Protein 9.14 mg/dL (0.0-0.3); CO2 22.5 mmol/L (21.0-32.0); CREATININE 0.7 mg/dL (0.55-1.02); Calcium 8.8 mg/dL (8.5-10.1); Chloride 101 mmol/L (98-107); Glucose 115 mg/dL (74-106); Potassium 3.8 mmol/L (3.5-5.1); Sodium 135 mmol/L (136-145); Total Protein 7.7 g/dL (6.4-8.2)
[2021-11-12] MEDS: Normal Saline Flush 10 ML SYR IVP (14:26)
[2021-11-12] MEDS: Gadoterate meglumine 20 ML SYRINGE 19 ML IVP (14:27)
[2021-11-12 14:49] LABS: COVID-19 PCR Negative (Negative); Influenza A PCR Negative (Negative); Influenza B PCR Negative (Negative); RSV PCR Negative (Negative)
--- NOTE | 2021-11-12 15:55 | W.ED.GENAD ---
Discharge Plan Disposition Patient Disposition: HOME Condition: Stable Discharge Details Clinical Impression: Acute UTI, Fever, Back pain Primary Care Provider: Duy Lund ED Provider: Amandeep Post Home Meds and New Rx's Prescriptions: New cephalexin 500 mg tablet 500 mg PO TID 6 Days Qty: 18 0RF Continued metoprolol tartrate 25 mg tablet 25 mg PO BID aspirin 81 mg tablet,delayed release (DR/EC) 81 mg PO DAILY sertraline 25 mg tablet 25 mg PO DAILY acetaminophen [Tylenol] 325 MG tablet 1,300 mg PO DAILY Label Comments: 04/09/15 tabs are 650mg clw acetaminophen [Acetaminophen Extra Strength] 500 mg tablet 500 mg PO Q6H PRN naproxen 250 mg tablet 220 mg PO DAILY Discharge Instructions Instructions: Urinary Tract Infection in Women (ED), Back Pain (ED) Additional Instructions: tylenol as needed for fever and pain recheck with pcp tomorrow pending lyme titer return with new or worsening complaints Referrals: Duy Lund MD [Primary Care Provider] - 1 day Discharge Data Discharge Date/Time-TO BE ENTERED AT DEPARTURE: 11/12/21 18:39 Medical Decision Making <KINJAL Taveras - Last Filed: 11/13/21 10:18> labs show mild leukocytosis Her labs are reassuring Her MRI does not show evidence of abscess cxr does not show infectious etiology Pending urinalysis , oxycodone and tylenol for pain signed out to Cheikh pending UA, ambulatory trial, reassessment Medical Records Medical records reviewed: Yes I reviewed the patient's medical records. Lab Data Lab results reviewed: Yes I reviewed the patient's lab results. <Amandeep Post NP - Last Filed: 11/14/21 17:20> labs show mild leukocytosis Her labs are reassuring Her MRI does not show evidence of abscess cxr does not show infectious etiology Pending urinalysis , oxycodone and tylenol for pain signed out to Cheikh pending UA, ambulatory trial, reassessment Patient was able to ambulate and reviewed urinalysis that does show positive nitrates and RBCs with bacteria. Discussed with patient plan to treat with antibiotics. Patient does state that she did have improvement of her standard back pain with the oxycodone. She is concerned with some possible associated nausea from the antibiotics so we will send patient home with limited supply of narcotics after discussion of risk versus benefit was had and we will also give patient some Zofran. After discussion of diagnosis and plan of care patient has no further needs, questions, or concerns and states clear understanding to return to the emergency department for any worsening symptoms. This documentation was generated using [employer] dictation system, please disregard any oddities of phrase or misspellings. HPI <KINJAL Taveras - Last Filed: 11/13/21 10:18> General Date/Time Provider Initiated Documentation: 11/12/21 12:49. HPI Narrative: This 75-year-old female with past medical history of arthritis and pulmonary hypertension Presents with Report of Back Pain Which Is Worsening., At home. Status post caudal injection weeks ago. Negative COVID testing. Denies any urinary complaints. Denies any known sick contacts or to have any abdominal pain. Related Data Home Medications Medication Instructions Recorded Confirmed Tylenol 325 mg tablet 1,300 mg PO DAILY 09/10/12 11/12/21 (acetaminophen) acetaminophen 500 mg tablet 500 mg PO Q6H PRN 01/19/19 11/12/21 (Acetaminophen Extra Strength) aspirin 81 mg tablet,delayed 81 mg PO DAILY 01/19/19 11/12/21 release naproxen 250 mg tablet 220 mg PO DAILY 01/19/19 11/12/21 metoprolol tartrate 25 mg tablet 25 mg PO BID 01/11/21 11/12/21 sertraline 25 mg tablet 25 mg PO DAILY 01/11/21 11/12/21 cephalexin 500 mg tablet 500 mg PO TID 6 days #18 tabs 11/12/21 Previous Rx's Medication Instructions Recorded cephalexin 500 mg tablet 500 mg PO TID 6 days #18 tabs 11/12/21 Allergies Allergy/AdvReac Type Severity Reaction Status Date / Time celery Allergy Severe Anaphylaxsi Unverified 11/12/21 13:39 s sulfamethoxazole AdvReac Intermediate Unverified 11/12/21 13:39 [From Bactrim] trimethoprim [From Bactrim] AdvReac Intermediate Unverified 11/12/21 13:39 ciprofloxacin [From Cipro] AdvReac pt had Unverified 11/12/21 13:39 joint pain General Stated Complaint: GenMedical KETTY: 3 Review of Systems <KINJAL Taveras Last Filed: 11/13/21 10:18> All systems reviewed & are unremarkable except as noted in HPI and below PFSH <KINJAL Taveras - Last Filed: 11/13/21 10:18> All Active Problems (Updated 11/12/21 @ 18:08 by Amandeep Post NP) Fever (Acute) Back pain (Acute) Acute UTI (Acute) Arthritis of right knee (Acute) Arthritis of left knee (Acute) Lumbar spinal stenosis (Acute) Hyperlipemia, mixed (Acute) Near syncope (Acute) Pulmonary hypertension (Acute) Diastolic dysfunction (Acute) Medical History Anxiety Depression Diastolic dysfunction Hyperlipemia, mixed Hypertension Mitral regurgitation Near syncope Pulmonary hypertension Social History Smoking/Tobacco Use Status: Former Tobacco Use Quit Date: 05/04/96 Smoking risk assessment performed?: Yes Alcohol Intake: never Drug use: Never Substance use type: does not use Do you feel safe in your relationship?: Yes Exam <KINJAL Taveras - Last Filed: 11/13/21 10:18> Const General: cooperative, comfortable and no acute distress HENMT Mouth: oral mucosae normal Eyes Pupils: PERRL Neck Other: no meningismus Resp Effort & Inspection: normal respiratory effort Auscultation: clear to auscultation bilaterally Cardio Rate: regular rate Rhythm: regular rhythm GI Inspection: normal to inspection Other: no cva tenderness non-tender abdominal exam Back/Spine/Pelvis Back/spine/pelvis image: 1. Area of reported tenderness, no rashes or lesions Skin General skin exam: no rashes or lesions noted Neuro General: patient alert and patient oriented x3 Other: strength and sensation intact distally Extrem General: normal to inspection Course <KINJAL Taveras Last Filed: 11/13/21 10:18> Vital Signs Vital signs: Vital Signs Temperature 36.7 C 11/12/21 11:33 Pulse 94 H 11/12/21 11:33 Respiratory Rate 18 11/12/21 11:33 Blood Pressure 136/61 11/12/21 11:33 Pulse Oximetry 93 11/12/21 11:33 Temperature 37.4 C 11/12/21 13:20 Temperature Source Oral 11/12/21 13:20 Pulse 91 H 11/12/21 13:20 Respiratory Rate 16 11/12/21 13:35 Respiratory Effort Non-Labored 11/12/21 13:35 Respiratory Depth Normal 11/12/21 13:35 Respiratory Pattern Irregular 11/12/21 13:35 Blood Pressure 127/64 11/12/21 13:20 Blood Pressure Position Sitting 11/12/21 11:33 Pulse Oximetry 92 11/12/21 13:20 Oxygen Delivery Method Room Air 11/12/21 13:20 Oxygen Flow Rate 0 11/12/21 13:20 Lab/Test Results Lab/Test Results: 11/12/21 13:41 Blood Blood Culture - Pending 11/12/21 13:48 Blood Blood Culture - Pending Laboratory Tests Range/Units 11/12/21 11/12/21 11/12/21 13:34 13:41 13:41 WBC (4.4-10.8) 10^3/uL RBC (3.93-5.22) 10^6/uL Hgb (11.2-15.7) g/dL Hct (36.0-46.0) % MCV (80-95) fL MCH (27.0-33.0) pg MCHC (32.0-36.0) % RDW (11.7-14.6) % Plt Count (130-400) 10^3/uL MPV (8.0-11.0) fL Immature Gran % Neutrophils % Lymphocytes % Monocytes % Eosinophils % Basophils % Nucleated RBC % (0.0-0.3) % Absolute Neutrophils (1.2-6.7) 10^3/uL Absolute Lymphocytes (1.2-3.4) 10^3/uL Absolute Monocytes (0.1-0.8) 10^3/uL Absolute Eosinophils (0.0-0.7) 10^3/uL Absolute Basophils (0.0-0.2) 10^3/uL VBG Lactate (0.6-1.4) mmol/L 1.0 Sodium (136-145) mmol/L 135 L Potassium (3.5-5.1) mmol/L 3.8 Chloride (98-107) mmol/L 101 Carbon Dioxide (21.0-32.0) mmol/L 22.5 Anion Gap (3-11) mmol/L 11.5 H BUN (7-18) mg/dL 19 H Creatinine (0.55-1.02) mg/dL 0.7 Estimated GFR/1.73 m2 (mL/min/1.73m2) >= 60.00 Glucose (74-106) mg/dL 115 H Calcium (8.5-10.1) mg/dL 8.8 Total Bilirubin (0.2-1.0) mg/dL 0.5 AST (15-37) U/L 15 ALT (14-59) U/L 22 Alkaline Phosphatase (46-116) U/L 54 C-Reactive Protein (0.0-0.3) mg/dL 9.14 H Total Protein (6.4-8.2) g/dL 7.7 Albumin (3.4-5.0) g/dL 3.7 COVID-19 Source Not Applicable SARS-CoV-2 (PCR) (Negative) Negative Influenza Type A (PCR) (Negative) Negative Influenza Type B (PCR) (Negative) Negative RSV (PCR) (Negative) Negative Range/Units 11/12/21 13:41 WBC (4.4-10.8) 10^3/uL 14.75 H RBC (3.93-5.22) 10^6/uL 4.38 Hgb (11.2-15.7) g/dL 13.1 Hct (36.0-46.0) % 40.5 MCV (80-95) fL 93 MCH (27.0-33.0) pg 29.9 MCHC (32.0-36.0) % 32.3 RDW (11.7-14.6) % 14.0 Plt Count (130-400) 10^3/uL 226 MPV (8.0-11.0) fL 10.6 Immature Gran % 0.4 Neutrophils % 86.3 Lymphocytes % 5.3 Monocytes % 7.9 Eosinophils % 0.0 Basophils % 0.1 Nucleated RBC % (0.0-0.3) % 0.0 Absolute Neutrophils (1.2-6.7) 10^3/uL 12.73 H Absolute Lymphocytes (1.2-3.4) 10^3/uL 0.78 L Absolute Monocytes (0.1-0.8) 10^3/uL 1.17 H Absolute Eosinophils (0.0-0.7) 10^3/uL 0.00 Absolute Basophils (0.0-0.2) 10^3/uL 0.01 VBG Lactate (0.6-1.4) mmol/L Sodium (136-145) mmol/L Potassium (3.5-5.1) mmol/L Chloride (98-107) mmol/L Carbon Dioxide (21.0-32.0) mmol/L Anion Gap (3-11) mmol/L BUN (7-18) mg/dL Creatinine (0.55-1.02) mg/dL Estimated GFR/1.73 m2 (mL/min/1.73m2) Glucose (74-106) mg/dL Calcium (8.5-10.1) mg/dL Total Bilirubin (0.2-1.0) mg/dL AST (15-37) U/L ALT (14-59) U/L Alkaline Phosphatase (46-116) U/L C-Reactive Protein (0.0-0.3) mg/dL Total Protein (6.4-8.2) g/dL Albumin (3.4-5.0) g/dL COVID-19 Source SARS-CoV-2 (PCR) (Negative) Influenza Type A (PCR) (Negative) Influenza Type B (PCR) (Negative) RSV (PCR) (Negative) Sign Out <KINJAL Taveras - Last Filed: 11/13/21 10:18> Sign Out Data: Sign Out Comment: pending UA, pain meds, iv fluids, reassessment /dispo Last updated by Ernestina Lugo PA at 11/12/21 16:22
[2021-11-12] MEDS: Normal Saline 500 ML IV (16:30)
[2021-11-12] MEDS: oxyCODONE 5 MG TAB PO (16:30)
[2021-11-12] MEDS: Acetaminophen 325 MG TAB 650 MG PO (16:30)
[2021-11-12 16:49] LABS: Bilirubin Negative (Negative); Blood Trace-intact (Negative); Clarity Clear (Clear); Glucose Negative (Negative); Ketones 40 mg/dL (Negative); Leukocyte Esterase Negative (Negative); Nitrite Positive (Negative); Specific Gravity 1.015 (1.005-1.025); Urobilinogen 0.2 EU/dL (Up TO 0.2); pH 6.5 (5-8)
[2021-11-12 16:50] LABS: Source Nasopharynx
[2021-11-12 16:58] LABS: Epithelial Cells Few HPF (Negative); RBC 0-2 HPF (0-2)
[2021-11-12 16:59] LABS: Bacteria Packed HPF (Negative); C & S Indicated? Yes; Crystals Negative HPF (Negative); Mucus Negative (Negative)
[2021-11-12] MEDS: Cephalexin 500 MG CAP PO (18:31)
[2021-11-12] MEDS: Cephalexin 500 MG CAP, 2 CAPS/BTL PO (18:32)
[2021-11-12] MEDS: Ondansetron O.D.T. 4 MG TABEF, 3 TABS/BTL PO (18:32)
[2021-11-14 13:47] LABS: Lyme Ab w Rflx to Lyme Confirm Negative (Negative)
[2021-11-15 18:31] LABS: Anaplasma phagocytophilum Negative (Negative); B. miyamotoi PCR Negative (Negative); Babesia divergens/MO-1 Negative (Negative); Babesia duncani Negative (Negative); Babesia microti Negative (Negative); Ehrlichia chaffeensis Negative (Negative); Ehrlichia ewingii/canis Negative (Negative); Ehrlichia muris eauclairensis Negative (Negative)
== END 2021-11-12 18:39 | disposition home or self-care (01) ==
PROVIDERS: Physician Assistant; Emergency Provider Nurse Practitioner Family; PCP Family Medicine
DX: N39.0 Urinary tract infection, site not specified (principal); M54.9 Dorsalgia, unspecified; D72.829 Elevated white blood cell count, unspecified; I10 Essential (primary) hypertension; Z20.822 Contact with and (suspected) exposure to COVID-19; Z87.891 Personal history of nicotine dependence
CPT/HCPCS: 36415; 72158; 80053; 87040; 87077; 87637; 87798; 96360; 99284; 99285; 71045; 81003; 81015; 83605; 85025; 86140; 86618; 87086; 87186

== ENCOUNTER 2022-02-05 13:58 | Outpatient (REF) | payer MEDICARE, OTHER, SELFPAY | END 2022-02-05 13:59 | disposition home or self-care (01) | LOC: NCHCN 13:58 | PROVIDERS: PCP Family Medicine; Visit Provider Family Medicine | DX: R35.0 Frequency of micturition (principal) | CPT/HCPCS: 87077; 87086; 87186 ==

== ENCOUNTER → 2022-02-26 02:09 | Outpatient (CLI) | payer MEDICARE, OTHER, SELFPAY ==
--- NOTE | 2022-02-26 | DI.MAMMO_ITS ---
Exam(s) MG MAMMO DIAGNOSTIC UNI US BREAST RT LIMITED EXAM: MG MAMMO DIAGNOSTIC UNI CLINICAL HISTORY: F/U ABNL MAMMO, 6 MO F/U, R92.8 TECHNIQUE: Mammograms were interpreted according to the usual protocol including computer analysis w ith CAD system, tomosynthesis and C-view imaging. COMPARISON: FINDINGS: Today's right breast mammogram was obtained to follow an area of nodularity seen on prior examination of May 25. This area of nodularity is less prominent on the current examination. However, there is interval development of questionable new area of nodularity laterally in the right breast. Additional mammographic views of the right breast and right breast ultrasound were obtained to evaluate this new area of nodularity along with a right breast ultrasound, these examinations are interpreted in conjunction. Additional mammographic views show faint persistent nodularity but no convincing mass lesion. Breast ultrasound shows no evidence of a mass or cyst. IMPRESSION: No specific evidence of malignancy at this time. Follow-up unilateral right breast mammogram recomme nded in 6 months to re-evaluate in area of lateral right breast nodularity. BI-RADS Category 3 - 6 month - Probably Benign Finding: Recommend follow-up mammography in 6 months Breast Density - Category B - Scattered areas of fibroglandular density
== END ==
PROVIDERS: PCP Family Medicine; Visit Provider Family Medicine
DX: R92.8 Other abnormal and inconclusive findings on diagnostic imaging of breast (principal)
CPT/HCPCS: 76642; 77061; 77065; G0279

== ENCOUNTER 2022-03-25 13:06 | Emergency (ER) | payer MEDICARE, OTHER, SELFPAY ==
--- NOTE | 2022-03-25 13:15 | RT.EKG_ITS ---
APPROVED REPORT Exam: Resting ECG Reason for Exam: increased lower leg swelling Patient Location: E HR:73 bpm ECG Measurements Heart Rate 73 AXIS CO 158 P 55 QRSd 91 QRS -1 QT 381 T 9 QTc 415 Conclusion Sinus rhythm...normal P axis, V-rate 60- 99 Atrial premature complex...SV complex w/ short R-R interval
[2022-03-25 13:17] VITALS: BP 192/75; PULSE 80; RESP 14; TEMP 36.5; O2SAT 95
--- NOTE | 2022-03-25 13:45 | DI.CT_ITS ---
Exam(s) CT ABD AORTA CTA W RUNOFF EXAM: CT ABD AORTA CTA W RUNOFF CLINICAL HISTORY: paresthesias legs with cyanosis. TECHNIQUE: Imaging Protocol: Axial CT angiography was performed with multi-slice acquisition and mu lti-planar and/or 3D reconstructions. CONTRAST MATERIAL: Intravenous: Omnipaque 350 Contrast volume:146 mL Oral: No COMPARISON: CT ABD PELVIS WO CONTRAST from 06/13/2011 FINDINGS: Vascular Structures: Abdomen and pelvis: Celiac [place]/SMA: No evidence of occlusion or significant stenosis. Renal Arteries: No evidence of occlusion or significant stenosis. There is a single renal artery perf using each kidney. Aorta: No aneurysm, occlusion or significant stenosis. No dissection. Atherosclerosis is present. Iliac Arteries: No evidence of occlusion or significant stenosis. Lower extremities: Right: Common Femoral: No evidence of occlusion or significant stenosis. Femoral: No evidence of occlusion or significant stenosis. Deep Femoral Artery: No evidence of occlusion or significant stenosis. Popliteal: No evidence of occlusion or significant stenosis. Knee Trifurcation: No evidence of occlusion or significant stenosis. Lower leg arteries: No evidence of occlusion or significant stenosis. Left: Common Femoral: No evidence of occlusion or significant stenosis. Femoral: No evidence of occlusion or significant stenosis. Deep femoral artery: No evidence of occlusion or significant stenosis. Popliteal: No evidence ofocclusion or significant stenosis. Knee Trifurcation: No evidence of occlusion or significant stenosis. Lower leg arteries: No evidence of occlusion or significant stenosis. Soft Tissues: Lung bases: Clear. There is a small hiatal hernia. Liver: Normal density. There are several hypodense lesion seen within the liver. These were present on the CT scan of the abdomen and pelvis from 06/13/2011. These may represent small hemangiomas. The re are stable. Gallbladder and biliary tract: No radiodense calculus or dilation. Pancreas: Normal density, no abnormal calcifications or inflammatory process. Spleen: Normal. Kidneys: Normal size, contour and axis. No radiodense stones or obstructive uropathy. No masses seen. Incidental note is made of a retroaortic left renal vein. Adrenal glands: No masses seen. Aorta: Abdominal portion non-dilated. Atherosclerosis is present. Bladder: Symmetric distention, no gross wall thickening. Bowel: No obstruction or bowel wall thickening. The appendix is unremarkable. Peritoneal cavity: No ascites, collection or mesenteric inflammatory response. No free air. Note is made of a small fat containing umbilical hernia. Bones: Within normal limits for the patient's age. IMPRESSION: 1. No aneurysm, occlusion or significant stenosis on the CT angiography and runoff. 2. No acute abdominal or pelvic process. 3. Stable hypodense lesions of the liver. There is stability and characteristics are suggestive of h epatic hemangiomas. 4. Findings were discussed with the emergency department at 4:03 p.m. on 03/25/2022. RADIATION DOSE DELIVERED: Total DLP Total DLP DATA REPOSITORY: All CT scans at this facility are submitted to the National Radiology Data Registry (NRDR) Dose Index Registry (DIR) with the [employer] (ACR). RADIATION OPTIMIZATION: All CT scans at this facility use at least one of these dose optimization te chniques: automated exposure control; mA and/or kV adjustment per patient size (includes targeted exa ms where dose is matched to clinical indication); or iterative reconstruction.
[2022-03-25 14:05] LABS: Abs Immature Grans 0.03 10^3/uL (0.0-0.06); Absolute Basophil Count 0.03 10^3/uL (0.0-0.2); Absolute Eosinophil Count 0.03 10^3/uL (0.0-0.7); Absolute Lymphocyte Count 1.66 10^3/uL (1.2-3.4); Absolute Monocyte Count 0.72 10^3/uL (0.1-0.8); Absolute Neutrophil Count 7.27 10^3/uL (1.2-6.7); Basophils % 0.3; Eosinophils % 0.3; HCT 40.4 % (36.0-46.0); HGB 12.9 g/dL (11.2-15.7); Immature Grans % 0.3; MCH 29.7 pg (27.0-33.0); MCHC 31.9 % (32.0-36.0); MCV 93 fL (80-95); MPV 10.7 fL (8.0-11.0); Monocytes % 7.4; Neutrophils % 74.7; Platelet Count 290 10^3/uL (130-400); RBC 4.34 10^6/uL (3.93-5.22); RDW 13.1 % (11.7-14.6); RDW-SD 44.9 fL; WBC 9.74 10^3/uL (4.4-10.8)
[2022-03-25 14:35] LABS: Prothrombin Time 10.1 sec (9.3-11.0)
[2022-03-25 14:44] LABS: ALT 17 U/L (14-59); AST 18 U/L (15-37); Albumin 3.8 g/dL (3.4-5.0); Alkaline Phosphatase 61 U/L (46-116); BUN 22 mg/dL (7-18); Bilirubin, Total 0.3 mg/dL (0.2-1.0); CREATININE 0.9 mg/dL (0.55-1.02); Calcium 8.9 mg/dL (8.5-10.1); Chloride 103 mmol/L (98-107); Estimated GFR 66.26 (mL/min/1.73m2); Glucose 104 mg/dL (74-106); Potassium 3.8 mmol/L (3.5-5.1); Sodium 138 mmol/L (136-145); Total Protein 7.5 g/dL (6.4-8.2)
--- NOTE | 2022-03-25 15:04 | ED.GENADUL_ITS ---
Discharge Plan Disposition Patient Disposition: Home Condition: Stable Discharge Details Clinical Impression: Lumbar spinal stenosis Primary Care Provider: Duy Lund ED Provider: Ernestina Lugo Home Meds and New Rx's Prescriptions: New cyclobenzaprine 5 mg tablet 5 mg PO TID PRNQty: 10 0RF Continued metoprolol tartrate 25 mg tablet 25 mg PO BID aspirin 81 mg tablet,delayed release (DR/EC) 81 mg PO DAILY sertraline 25 mg tablet 25 mg PO DAILY acetaminophen [Tylenol] 325 MG tablet 1,300 mg PO DAILY Label Comments: 04/09/15 tabs are 650mg clw acetaminophen [Acetaminophen Extra Strength] 500 mg tablet 500 mg PO Q6H PRN naproxen 250 mg tablet 220 mg PO DAILY Discharge Instructions Instructions: Acute Low Back Pain (ED) Referrals: Duy Lund MD [Primary Care Provider] - Discharge Data Discharge Date/Time-TO BE ENTERED AT DEPARTURE: 03/25/22 16:32 Medical Decision Making Patient has excellent dopplerable pulses to bilateral lower extremities, coloration is intact at time of my assessment Her abdomen is nontender without obvious palpable abdominal bruit or pulsatile mass, she has mild tenderness to her lumbar spine, it sounds like this is not a new process for patient Will order a CTA aorta with runoff to evaluate for any sort of occlusive pathology Patient is stable at time of my assessment, diagnostic labs are within normal limits cta negative, dc'd home with back pain precautions Close outpatient reassessment, recommended, 24 to 48 hours Medical Records Medical records reviewed: Yes I reviewed the patient's medical records. Lab Data Lab results reviewed: Yes I reviewed the patient's lab results. Sign Out No HPI General Date/Time Provider Initiated Documentation: 03/25/22 13:11 . HPI Narrative: This 76-year-old female presents with report of swelling and discoloration to bilateral lower extremities. She states when she wakes in the morning her feet are white in color. She states this started about a week ago. She states when she gets up and walks around her coloration actually improves. She said some intermittent paresthesias to her legs. She also has pain in her back. She states this is not new for her but has been persistent and she has been receiving injections in her lumbar spine for this discomfort. She denies any saddle anesthesia or changes in bowel or bladder. States the pain is to the left of her rectum, several inches. She states this is been going on for several years. She denies any fever or chills. She denies any falls or injuries. She denies any abdominal discomfort associated. She was sent in by her doctor for discoloration in her legs reportedly. Related Data Home Medications Medication Instructions Recorded Confirmed Tylenol 325 mg tablet 1,300 mg PO DAILY 09/10/12 11/12/21 (acetaminophen) acetaminophen 500 mg tablet 500 mg PO Q6H PRN 01/19/19 11/12/21 (Acetaminophen Extra Strength) aspirin 81 mg tablet,delayed 81 mg PO DAILY 01/19/19 11/12/21 release naproxen 250 mg tablet 220 mg PO DAILY 01/19/19 11/12/21 metoprolol tartrate 25 mg tablet 25 mg PO BID 01/11/21 11/12/21 sertraline 25 mg tablet 25 mg PO DAILY 01/11/21 11/12/21 cyclobenzaprine 5 mg tablet 5 mg PO TID PRN #10 tabs 03/25/22 Previous Rx's Medication Instructions Recorded cyclobenzaprine 5 mg tablet 5 mg PO TID PRN #10 tabs 03/25/22 Allergies Allergy/AdvReac Type Severity Reaction Status Date / Time celery Allergy Severe Anaphylaxsi Unverified 11/12/21 13:39 s sulfamethoxazole AdvReac Intermediate Unverified 11/12/21 13:39 [From Bactrim] trimethoprim [From Bactrim] AdvReac Intermediate Unverified 11/12/21 13:39 ciprofloxacin [From Cipro] AdvReac pt had Unverified 11/12/21 13:39 joint pain General Stated Complaint: GenMedical KETTY: 3 Review of Systems All systems reviewed & are unremarkable except as noted in HPI and below PFSH All Active Problems (Updated 03/25/22 @ 16:08 by Mimi Garay NP) Arthritis of right knee (Acute) Arthritis of left knee (Acute) Lumbar spinal stenosis (Acute) Hyperlipemia, mixed (Acute) Near syncope (Acute) Pulmonary hypertension (Acute) Diastolic dysfunction (Acute) Medical History Anxiety Depression Diastolic dysfunction Hyperlipemia, mixed Hypertension Mitral regurgitation Near syncope Pulmonary hypertension Social History Smoking/Tobacco Use Status: Former Tobacco Use Quit Date: 05/04/96 Smoking risk assessment performed?: Yes Alcohol Intake: never Drug use: Never Substance use type: does not use Do you feel safe in your relationship?: Yes Exam Const General: cooperative, comfortable and no acute distress Eyes Pupils: PERRL Resp Effort & Inspection: normal respiratory effort Auscultation: clear to auscultation bilaterally Cardio Rate: regular rate Rhythm: regular rhythm Pulses: dorsalis pedis present GI Inspection: normal to inspection Other: non-tender abdominal exam Skin General skin exam: no rashes or lesions noted Neuro General: patient alert and patient oriented x3 Extrem Other: Neurovascularly intact to bilateral lower extremities no visible discoloration Course Vital Signs Vital signs: Vital Signs Temperature 36.5 C 03/25/22 13:17 Pulse 80 03/25/22 13:17 Respiratory Rate 14 03/25/22 13:17 Blood Pressure 192/75 H 03/25/22 13:17 Pulse Oximetry 95 03/25/22 13:17 Temperature 36.5 C 03/25/22 13:17 Temperature Source Temporal Artery Scan 03/25/22 13:17 Pulse 80 03/25/22 13:17 Respiratory Rate 14 03/25/22 13:17 Respiratory Effort Non-Labored 03/25/22 14:31 Respiratory Depth Normal 03/25/22 14:31 Respiratory Pattern Normal 03/25/22 14:31 Blood Pressure 192/75 H 03/25/22 13:17 Blood Pressure Position Sitting 03/25/22 13:17 Pulse Oximetry 95 03/25/22 13:17 Oxygen Delivery Method Room Air 03/25/22 13:17 Oxygen Flow Rate 0 03/25/22 13:17 Lab/Test Results Lab/Test Results: Laboratory Tests Range/Units 03/25/22 03/25/22 03/25/22 13:43 13:43 13:43 WBC (4.4-10.8) 10^3/uL 9.74 RBC (3.93-5.22) 10^6/uL 4.34 Hgb (11.2-15.7) g/dL 12.9 Hct (36.0-46.0) % 40.4 MCV (80-95) fL 93 MCH (27.0-33.0) pg 29.7 MCHC (32.0-36.0) % 31.9 L RDW (11.7-14.6) % 13.1 Plt Count (130-400) 10^3/uL 290 MPV (8.0-11.0) fL 10.7 Immature Gran % 0.3 Neutrophils % 74.7 Lymphocytes % 17.0 Monocytes % 7.4 Eosinophils % 0.3 Basophils % 0.3 Nucleated RBC % (0.0-0.3) % 0.0 Absolute Neutrophils (1.2-6.7) 10^3/uL 7.27 H Absolute Lymphocytes (1.2-3.4) 10^3/uL 1.66 Absolute Monocytes (0.1-0.8) 10^3/uL 0.72 Absolute Eosinophils (0.0-0.7) 10^3/uL 0.03 Absolute Basophils (0.0-0.2) 10^3/uL 0.03 PT (9.3-11.0) sec 10.1 INR (0.9-1.1) 1.0 Sodium (136-145) mmol/L 138 Potassium (3.5-5.1) mmol/L 3.8 Chloride (98-107) mmol/L 103 Carbon Dioxide (21.0-32.0) mmol/L 25.0 Anion Gap (3-11) mmol/L 10.0 BUN (7-18) mg/dL 22 H Creatinine (0.55-1.02) mg/dL 0.9 Est GFR (CKD-EPI 2020) (mL/min/1.73m2) 66.26 Glucose (74-106) mg/dL 104 Calcium (8.5-10.1) mg/dL 8.9 Total Bilirubin (0.2-1.0) mg/dL 0.3 AST (15-37) U/L 18 ALT (14-59) U/L 17 Alkaline Phosphatase (46-116) U/L 61 Total Protein (6.4-8.2) g/dL 7.5 Albumin (3.4-5.0) g/dL 3.8
[2022-03-25] MEDS: Normal Saline - Diluent 50 ML VIAL 100 ML IV (15:16)
[2022-03-25] MEDS: Omnipaque 350 MG/ML 100 ML BTL 150 ML IJ (15:18)
[2022-03-25 15:55] LABS: Bilirubin Negative (Negative); Blood Negative (Negative); Clarity Sl Cloudy (Clear); Glucose Negative (Negative); Ketones Negative (Negative); Leukocyte Esterase Negative (Negative); Nitrite Positive (Negative); Specific Gravity 1.015 (1.005-1.025); Urobilinogen 0.2 EU/dL (Up TO 0.2); pH 5.5 (5-8)
[2022-03-25 16:02] LABS: Bacteria Moderate HPF (Negative); C & S Indicated? Yes; Casts Negative LPF (Negative); Crystals Negative HPF (Negative); Epithelial Cells Few HPF (Negative); Mucus Negative (Negative); RBC 0-2 HPF (0-2)
== END 2022-03-25 16:32 | disposition home or self-care (01) ==
PROVIDERS: Emergency Provider Physician Assistant; PCP Family Medicine
DX: M48.061 Spinal stenosis, lumbar region without neurogenic claudication (principal); I10 Essential (primary) hypertension; E78.2 Mixed hyperlipidemia; Z87.891 Personal history of nicotine dependence; R82.71 Bacteriuria
CPT/HCPCS: 36415; 75635; 80053; 87077; 93005; 99285; 81003; 81015; 85025; 85610; 87086; 87186; 93010; J3490

== ENCOUNTER 2022-09-09 01:36 | Outpatient (CLI) | payer MEDICARE, OTHER, SELFPAY ==
--- NOTE | 2022-09-09 | DI.US_ITS ---
Exam(s) US BREAST RT COMPLETE MG MAMMO DIAGNOSTIC BI EXAM: MG MAMMO DIAGNOSTIC BI AND COMPLETE RIGHT BREAST ULTRASOUND CLINICAL HISTORY: DIAGNOSTic, f/u abnl mammo, r92.8,. TECHNIQUE: BILATERAL CC AND MLO mammographic images were obtained with 3D tomosynthesis technique an d utilizing computer aided detection (CAD). Also performed complete right breast ultrasound including all 4 quadrants well as the axillary region COMPARISON: Prior mammograms were reviewed, the most recent being February 2022. Prior ultrasound ex aminations were also reviewed. FINDINGS: BILATERAL DIAGNOSTIC MAMMOGRAM: No new significant findings in left breast. In the right breast small benign-appearing nodular densities are again noted. These are all shown to be cysts on today's ultrasound (see below). There are no new spiculated masses nor malignant-appearing microcalcification in either breast. No n ew architectural distortion or skin thickening-traction. COMPLETE RIGHT BREAST ULTRASOUND: At the 12 o'clock position there are 2 benign microcysts, measuring 3 and 4 mm. At the 8-9 o'clock position there is again noted the previously described finding which on today's st udy has the appearance of a simple benign microcyst without internal echoes. No other focal findings in all 4 quadrants. Scanning of the right axilla is negative for adenopathy. IMPRESSION: 1. Benign-appearing mammographic findings. 2. Three right breast microcysts seen on ultrasound today, these corresponding to the findings on the mammogram. 3. Most importantly, there are no solid lesions. 4. Appropriate follow-up is keep this patient yearly mammogram schedule, with earlier imaging if a se lf detected breast change is noted. The patient was informed of the findings and follow-up recommendations by myself prior to leaving the department today. BI-RADS Category 2 - Benign Findings Breast Density - Category B - Scattered areas of fibroglandular density Breast density Category C or D implies that the patient has dense breast tissue. Dense breast tissue can make it harder to find cancer on a mammogram. Dense breast tissue is also associated with an incr eased risk of breast cancer. This information about the result of the mammogram report was provided to the patient to raise their awareness. Use this report when you speak with the patient about their risks for breast cancer, which includes their family history. At that time, you may recommend additional screening tests (Ultrasoun d or MRI) as these tests may add significant information. A negative radiographic report should not delay biopsy if a dominant or clinically suspicious mass is present. Up to ten percent of cancers are not identified on mammography. A negative report may reinforce clinical impression. Adenosis and dense breasts may obscure an underlying neoplasm. False positive reports average 6 to 10%. Patient will receive a letter notifying them of these results.
== END 2022-09-09 01:56 ==
LOC: DI 01:36
PROVIDERS: PCP Family Medicine; Visit Provider Family Medicine
DX: R92.8 Other abnormal and inconclusive findings on diagnostic imaging of breast (principal)
CPT/HCPCS: 76642; 77062; 77066; G0279

== ENCOUNTER 2022-11-18 16:07 | Outpatient (REF) | payer MEDICARE, OTHER, SELFPAY ==
[2022-11-18 16:49] LABS: Vitamin B12 262 pg/mL (193-986)
[2022-11-18 16:50] LABS: Folate > 20.0 ng/mL (8.6-20.0)
[2022-11-20 14:48] LABS: Albumin 57.2 % (55.8-66.1)
== END 2022-11-18 16:08 | disposition home or self-care (01) ==
LOC: NCHCN 16:07
PROVIDERS: PCP Family Medicine; Visit Provider Family Medicine
DX: R20.2 Paresthesia of skin (principal); I10 Essential (primary) hypertension; M48.061 Spinal stenosis, lumbar region without neurogenic claudication
CPT/HCPCS: 82607; 82746; 84165; 84443

== ENCOUNTER 2023-06-30 11:56 | Outpatient (REF) | payer MEDICARE, OTHER, SELFPAY ==
--- NOTE | 2023-06-30 15:40 | SKI_PTH ---
PATIENT: Kim Guevara LOC: [facility]#:[id number] AGE/SX: 77/F ROOM: RE06/30/[address]: Duy Lund : 1945 BED: DIS: 06/30/2023 SPEC #: [id number] RECD: 07/01/23 12:43 STATUS: NICKI REQ #: [id number] LOLIS: 06/30/23 15:[address]: Dyu Lund DEPT: Surgical Specimen RECD BY: Ernestina Guillen Tissues: 1 - SKIN BIOPSY(SHAVE/PUNCH) Procedures: SKIN LEVEL 4 Comments: [id number]
== END 2023-06-30 11:57 | disposition home or self-care (01) ==
LOC: NCHCN 11:56
PROVIDERS: PCP Family Medicine; Referring Provider Family Medicine; Visit Provider Family Medicine
DX: L82.1 Other seborrheic keratosis (principal)
CPT/HCPCS: 88305

== ENCOUNTER → 2023-09-11 00:26 | Outpatient (CLI) | payer MEDICARE, OTHER, SELFPAY ==
--- NOTE | 2023-09-11 13:00 | DI.MAMMO_ITS ---
Exam(s) MAMMO SCREENING EXAM: MAMMO SCREENING CLINICAL HISTORY: Z12.39 Screening TECHNIQUE: Mammograms were interpreted according to the usual protocol including computer analysis w [employer] CAD system, tomosynthesis and C-view imaging. COMPARISON: 2015 through 2022 FINDINGS: The breasts are composed of scattered fibroglandular densities, Breast Density category B. No suspicious masses or suspicious microcalcifications are seen. No skin thickening or abnormal axillary lymph nodes are seen. There has been no significant change from prior exams. IMPRESSION: BI-RADS Category 1, Negative mammogram Yearly screening mammography is recommended. Breast Density - Category B, scattered fibroglandular densities. A negative radiographic report should not delay biopsy if a dominant or clinically suspicious mass is present. Up to ten percent of cancers are not identified on mammography. A negative report may reinforce clinical impression. Adenosis and dense breasts may obscure an underlying neoplasm. False positive reports average 6 to 10%. Patient will receive a letter notifying them of these results.
== END ==
PROVIDERS: PCP Family Medicine; Visit Provider Family Medicine
DX: Z12.31 Encounter for screening mammogram for malignant neoplasm of breast (principal)
CPT/HCPCS: 77063; 77067

== ENCOUNTER 2023-11-26 16:25 | Outpatient (REF) | payer MEDICARE, OTHER, SELFPAY ==
[2023-11-26 15:01] LABS: Abs Immature Grans 0.02 10^3/uL (0.0-0.06); Absolute Basophil Count 0.03 10^3/uL (0.0-0.2); Absolute Eosinophil Count 0.06 10^3/uL (0.0-0.7); Absolute Lymphocyte Count 1.53 10^3/uL (1.2-3.4); Absolute Monocyte Count 0.76 10^3/uL (0.1-0.8); Basophils % 0.4 %; Eosinophils % 0.7 %; HCT 44.1 % (36.0-46.0); HGB 13.9 g/dL (11.2-15.7); Immature Grans % 0.2 %; Lymphocytes % 18.2 %; MCH 29.6 pg (27.0-33.0); MCHC 31.5 % (32.0-36.0); MCV 94 fL (80-95); MPV 11.5 fL (8.0-11.0); Neutrophils % 71.5 %; Platelet Count 302 10^3/uL (130-400); RBC 4.69 10^6/uL (3.93-5.22); RDW 13.9 % (11.7-14.6); RDW-SD 47.9 fL
[2023-11-26 15:17] LABS: ALT 23 U/L (14-59); AST 17 U/L (15-37); Albumin 4.1 g/dL (3.4-5.0); Alkaline Phosphatase 78 U/L (46-116); BUN 30 mg/dL (7-18); Bilirubin, Total 0.39 mg/dL (0.2-1.0); Calcium 9.5 mg/dL (8.5-10.1); Chloride 106 mmol/L (98-107); Estimated GFR 57.66 (mL/min/1.73m2); Glucose 100 mg/dL (74-106); LDL CHOLESTEROL 126 mg/dL (<100); Potassium 4.8 mmol/L (3.5-5.1); Sodium 142 mmol/L (136-145); Total Protein 7.3 g/dL (6.4-8.2)
== END 2023-11-26 16:26 | disposition home or self-care (01) ==
LOC: NCHCN 16:25
PROVIDERS: PCP Family Medicine; Visit Provider Family Medicine
DX: E78.5 Hyperlipidemia, unspecified (principal); I10 Essential (primary) hypertension
CPT/HCPCS: 80053; 83721; 85025

== ENCOUNTER 2024-02-04 15:48 | Outpatient (CLI) | payer MEDICARE, OTHER, SELFPAY ==
--- NOTE | 2024-02-04 14:14 | DI.RAD_ITS ---
Exam(s) XR KNEE RT 3V AP,LAT,JOYCE EXAM: XR KNEE RT 3V AP,LAT,JOYCE CLINICAL HISTORY: OA R KNEE. TECHNIQUE: 2D digital imaging was performed. Three views. COMPARISON: CR XR KNEE RT 2V AP,LAT from 01/11/2021 FINDINGS: BONES: No acute fracture is present. No bony destructive lesion is seen. Prominent enthesophytes at the patella. JOINTS: Severe degenerative changes, with a agtz-ku-flie appearance of the medial femoral tibial join t. Prominent periarticular spurring. Varus angulation and compensatory widening of the lateral femo ral tibial joint space. Spurring at the tibial spines and femoral intercondylar notch. Prominent sp urring at the patellofemoral joint. No joint effusion is seen. SOFT TISSUE: Normal. IMPRESSION: Severe degenerative changes of the medial femoral tibial joint. DATA REPOSITORY: RADIATION DOSE DELIVERED:
--- NOTE | 2024-02-04 14:14 | DI.RAD_ITS ---
Exam(s) XR KNEE LT 3V AP,LAT,JOYCE EXAM: XR KNEE LT 3V AP,LAT,JOYCE CLINICAL HISTORY: OA L KNEE. TECHNIQUE: 2D digital imaging was performed of the left knee. Three images were obtained. AP, late ral and PA tunnel views were obtained. COMPARISON: CR XR KNEE LT 2V AP,LAT from 01/11/2021 FINDINGS: BONES: No acute fracture is present. No bony destructive lesion is seen. JOINTS: There is marked narrowing of the medial femoral tibial joint and the patellofemoral joint. T here osteophytes in all 3 joint compartments, particularly the patellofemoral joint. There is a join t effusion. There are densities seen in the joint suggesting loose bodies. SOFT TISSUE: Vascular calcifications are present. IMPRESSION: Stable marked osteoarthritis of the left knee. DATA REPOSITORY: RADIATION DOSE DELIVERED:
== END 2024-02-04 15:49 | disposition home or self-care (01) ==
LOC: DIORS 15:48
PROVIDERS: PCP Family Medicine; Referring Provider Family Medicine; Visit Provider Student in an Organized Health Care Education/Training Program
DX: M17.11 Unilateral primary osteoarthritis, right knee (principal); M17.12 Unilateral primary osteoarthritis, left knee
CPT/HCPCS: 73562; 99215

== ENCOUNTER 2024-02-19 00:27 | Outpatient (CLI) | payer MEDICARE, OTHER, SELFPAY ==
--- NOTE | 2024-02-19 12:30 | DI.US_ITS ---
APPROVED REPORT EXAM: Comprehensive 2D, Doppler, and color-flow Echocardiogram Patient Location: Out-Patient Automation Specialist: Eber Adams RDCS (AE) Indications: Pre-op, diastolic dysfunction Other Information Study Quality: Good. Technically limited study due to subotimal subcostal imaging. Conclusion Normal left ventricular wall thickness and chamber size. Ejection fraction is 60%. Wall motion is n ormal Normal right ventricular size and function Both atria are normal in size There is no structural or hemodynamically significant valvular disease Estimated right ventricular systolic pressure is 36 mmHg Wall motion Left Ventricle Left ventricle is mildly dilated. The left ventricular systolic function is normal. The left ventricu lar ejection fraction is within the normal range. There is normal left ventricular wall thickness. Th ere is normal LV segmental wall motion. There is no ventricular septal defect visualized. LVEF is 60% . Right Ventricle The right ventricle is normal size. The right ventricular systolic function is normal. Atria The left atrium size is normal. The right atrium size is normal. The interatrial septum is intact wit h no evidence for an atrial septal defect. Aortic Valve The aortic valve is normal in structure. Aortic valve is trileaflet. There is no aortic valvular sten osis. No aortic regurgitation is present. Mitral Valve Mild mitral annular calcification. No evidence of mitral valve stenosis. Mild mitral regurgitation. Tricuspid Valve The tricuspid valve is normal in structure. There is no tricuspid valve stenosis. Moderate tricuspid regurgitation. The RVSP is 35.9 mmHg. Pulmonic Valve The pulmonary valve is normal in structure. There is no pulmonic valvular stenosis. Mild pulmonic reg urgitation. Great Vessels The aortic root is normal in size. The ascending aorta is normal in size. Aortic arch is normal in ca liber. IVC is normal in size and collapses >50% with inspiration. Pericardium There is no pericardial effusion. 2D Dimensions IVSD d PLAX 0.60 cm F: 0.6-1.0 Ao Root d 2.28 cm F: 2.7 - 3.3 LVPW d PLAX 0.56 cm F: 0.6 - 1.0 Ao Asc Diam d 3.09 cm F: 2.3 - 3.1 LVID d PLAX 5.72 cm F: 3.8 - 5.2 LVDs 3.86 cm F: 2.2 - 3.5 LV EF Teichholz 60.1 % FS 32.46 % LV EDV (Teich) 161.2 mL LV ESV (Teich) 64.4 mL Stroke Vol Index (Teich) 47.69 M-Mode TAPSE 2.71 cm (M/F) >1.7 Auto EF LV EDV A4C 98.8 mL LV EDV A2C 83.1 mL LV EDV BP 92.0 mL LV ESV A4C 39.4 mL LV ESV A2C 33.2 mL LV ESV BP 35.9 mL LVEF(%) A4C 60.1 % LVEF(%) A2C 60.1 % LVEF(%) BP 61.0 % LV SV A4C 59.3 ml LV SV A2C 49.9 ml LV SV BP 56.2 ml LV CO A4C 3.6 L/min LV CO A2C 3.7 L/min LV CO BP 3.6 L/min HR A4C 60.08 BPM HR A2C 74.69 BPM LV EDV Index (BP) LA Volume LA Length A4C 4.6 cm LA Length A2C 5.1 cm LA Area A4C s 15.58 cm2 LA Area A2C s 14.67 cm2 LA Vol A4C A-L 44.65 mL LA Vol A2C A-L 35.90 mL LA Vol Biplane A-L 42.0 mL LA Vol/BSA A4C A-L LA Vol/BSA A2C A-L LA Vol/BSA BP A-L 20.7 mL/m2 LA Vol A4C MOD 40.7 mL LA Vol A2C MOD 35.0 mL LA Vol BP MOD 39.4 mL RA Volume RA Area A4C 9.7 cm2 RA ESV A4C (A-L) 17.5mL RA Vol/BSA A4C A-L RA Length A4C 4.5 cm RA ESV A4C (MOD) 16.6mL LV Diastology MV E' medial 0.064 (>0.07 m/s) MV E Vmax 0.54 (0.4-1.3 m/s) MV E/E' MED 8.39 (<14) MV A Vmax 0.70 (0.4-1.3 m/s) MV E' lateral 0.077 (>0.1 m/s) E/A Ratio 0.8 MV E/E' LAT 7.02 (<14) MV E' Average 0.070 m/s MV E/E'(average) 7.64 Aortic Valve AoV Vmax 1.43 m/s LVOT Vmax 1.05 m/s AoV Peak Grad 8.2 mmHg LVOT Peak Grad 4.4 mmHg AoV Area (Vmax) 1.92 cm2 LVOT VTI 0.242 m AoV VTI 0.332 m LVOT Mean Grad 2.2 mmHg AoV Mean John. 1.02 m/s LVOT SV 63.46 mL AoV Mean Grad 4.7 mmHg LVOT Diam s 1.80 cm AoV Area (VTI) 1.91 cm2 AV Regurg Peak Gr. 8.20 mmHg Velocity Ratio 0.73 Mitral Valve MV DT 219 (160-240 msec) MV Vmax TIPS 0.72 m/s MV Mean Grad 0.8 (<2mmHg) MV VTI 0.232 m Pulmonary Valve PV Vmax 1.03 (0.5-1.5 m/s) RVOT Vmax 0.65 m/s PV Peak Grad 4.2 mmHg RVOT Peak Gr. 1.7 mmHg PV Mean John 0.66 m/s RVOT VTI 0.135 m PV Mean Grad 2.0 mmHg RVOT Mean Gr. 0.8 mmHg Tricuspid Valve RA Pressure 3.00 mmHg TR Vmax 2.87 m/s TR Peak Grad 32.9 mmHg RVSP (TR) 35.9 mmHg
== END 2024-02-19 00:47 ==
LOC: DI 00:28
PROVIDERS: PCP Family Medicine; Visit Provider Student in an Organized Health Care Education/Training Program
DX: I51.89 Other ill-defined heart diseases (principal)
CPT/HCPCS: 93306

== ENCOUNTER 2024-03-07 21:29 | Outpatient (REF) | payer MEDICARE, OTHER, SELFPAY ==
[2024-03-07 21:49] LABS: Bilirubin Negative (Negative); Blood Trace-intact (Negative); Clarity Sl Cloudy (Clear); Glucose Negative (Negative); Ketones Trace mg/dL (Negative); Leukocyte Esterase Moderate (Negative); Nitrite Positive (Negative); Urobilinogen 0.2 mg/dL (Up to 0.2); pH 5.5 (5-8)
[2024-03-07 22:26] LABS: Bacteria Moderate HPF (Negative); Casts Negative LPF (Negative); Crystals Negative HPF (Negative); Epithelial Cells Many HPF (Negative); Mucus Negative (Negative); Other Cells Negative (Negative); WBC >50 HPF (0-5)
[2024-03-07 22:27] LABS: C & S Indicated? No/Sq. Contamination
== END 2024-03-07 21:30 | disposition home or self-care (01) ==
LOC: NCHCN 21:29
PROVIDERS: PCP Family Medicine; Visit Provider Family Medicine
DX: Z01.818 Encounter for other preprocedural examination (principal); B96.29 Other Escherichia coli [E. coli] as the cause of diseases classified elsewhere
CPT/HCPCS: 81003; 81015

== ENCOUNTER 2024-03-17 01:49 | Outpatient (CLI) | payer MEDICARE, OTHER, SELFPAY ==
[2024-03-17 13:40] LABS: HCT 42.4 % (36.0-46.0); HGB 13.5 g/dL (11.2-15.7); MCH 29.7 pg (27.0-33.0); MCHC 31.8 % (32.0-36.0); MCV 93 fL (80-95); MPV 10.9 fL (8.0-11.0); Platelet Count 278 10^3/uL (130-400); RBC 4.55 10^6/uL (3.93-5.22); RDW 13.4 % (11.7-14.6); RDW-SD 45.6 fL; WBC 7.98 10^3/uL (4.4-10.8)
[2024-03-17 13:51] LABS: Anion Gap 10.3 mmol/L (3-11); BUN 22 mg/dL (7-18); CO2 26.7 mmol/L (21.0-32.0); Calcium 9.1 mg/dL (8.5-10.1); Chloride 109 mmol/L (98-107); Estimated GFR 57.66 (mL/min/1.73m2); Glucose 101 mg/dL (74-106); Potassium 4.3 mmol/L (3.5-5.1); Sodium 146 mmol/L (136-145)
== END 2024-03-17 01:50 | disposition home or self-care (01) ==
LOC: LBO 01:49
PROVIDERS: PCP Family Medicine; Visit Provider Student in an Organized Health Care Education/Training Program
DX: M25.561 Pain in right knee (principal); M17.11 Unilateral primary osteoarthritis, right knee; Z01.818 Encounter for other preprocedural examination; Z01.812 Encounter for preprocedural laboratory examination
CPT/HCPCS: 36415; 80048; 85027; 99213; 77073

== ENCOUNTER 2024-03-17 14:32 | Outpatient (CLI) | payer MEDICARE, OTHER, SELFPAY ==
--- NOTE | 2024-03-17 12:00 | DI.RAD_ITS ---
Exam(s) XR STANDING ALIGNMENT EXAM: XR STANDING ALIGNMENT CLINICAL HISTORY: OA R KNEE. TECHNIQUE: 2D digital imaging was performed. Four images were obtained. COMPARISON: CR XR KNEE RT 3V AP,LAT,JYOCE from 02/04/2024 CR XR KNEE LT 3V AP,LAT,JOYCE from 02/04/2024 FINDINGS: BONES: The hips are well maintained. In the right knee there are marked degenerative changes again s een characterized by loss of the medial femoral tibial joint and osteophytes seen both medially and l aterally. In the left knee, there are marked degenerative changes characterized by loss of the joint space in the medial femoral tibial joint. There osteophytes seen both medially and laterally. The ankles are well maintained.There is no significant leg length discrepancy. SOFT TISSUE: Vascular calcifications are present. IMPRESSION: Marked osteoarthritis of the knees bilaterally. DATA REPOSITORY: RADIATION DOSE DELIVERED:
== END 2024-03-17 14:33 | disposition home or self-care (01) ==
LOC: DIORS 14:33
PROVIDERS: PCP Family Medicine; Visit Provider Physician Assistant
DX: M17.11 Unilateral primary osteoarthritis, right knee (principal)
CPT/HCPCS: 77073

== ENCOUNTER 2024-03-25 17:02 | Outpatient (REF) | payer MEDICARE, OTHER, SELFPAY | END 2024-03-25 17:03 | disposition home or self-care (01) | LOC: LBN 17:02 | PROVIDERS: PCP Family Medicine; Visit Provider Family Medicine | DX: N39.0 Urinary tract infection, site not specified (principal) | CPT/HCPCS: 87077; 87086; 87186 ==

== ENCOUNTER 2024-04-11 20:11 | Outpatient (REF) | payer MEDICARE, OTHER, SELFPAY | END 2024-04-11 20:12 | disposition home or self-care (01) | LOC: NCHCN 20:11 | PROVIDERS: PCP Family Medicine; Visit Provider Family Medicine | DX: N39.0 Urinary tract infection, site not specified (principal); R82.89 Other abnormal findings on cytological and histological examination of urine | CPT/HCPCS: 87077; 87086; 87186 ==

== ENCOUNTER 2024-05-09 16:59 | Outpatient (REF) | payer MEDICARE, OTHER, SELFPAY | END 2024-05-09 17:00 | disposition home or self-care (01) | LOC: NCHCN 16:59 | PROVIDERS: PCP Family Medicine; Visit Provider Family Medicine | DX: N39.0 Urinary tract infection, site not specified (principal); R82.89 Other abnormal findings on cytological and histological examination of urine | CPT/HCPCS: 87077; 87086; 87186 ==

== ENCOUNTER 2024-12-07 16:19 | Outpatient (REF) | payer MEDICARE, OTHER, SELFPAY ==
--- NOTE | 2024-12-07 14:00 | SKI_PTH ---
PATIENT: Kim Guevara LOC: [facility]#:[id number] AGE/SX: 79/F ROOM: RE12/07/[address]: Duy Lund : 1945 BED: DIS: 12/07/2024 SPEC #: [id number] RECD: 12/08/24 12:54 STATUS: NICKI REQ #: [id number] LOLIS: 12/07/24 14:[address]: Duy Lund DEPT: Surgical Specimen RECD BY: Ernestina Guillen Tissues: 1 - SKIN BIOPSY(SHAVE/PUNCH) Procedures: SKIN LEVEL 4 Comments: [id number]
== END 2024-12-07 16:20 | disposition home or self-care (01) ==
LOC: NCHCN 16:19
PROVIDERS: PCP Family Medicine; Visit Provider Family Medicine
DX: L57.0 Actinic keratosis (principal)
CPT/HCPCS: 88305